=== PATIENT | female | born 1940 | race Caucasian/White ===

== ENCOUNTER 2023-10-08 13:19 | Inpatient (IN) | payer OTHER, SELFPAY ==
[2023-10-08] VITALS (10 sets, daily range): BP systolic 132–175; BP diastolic 63–89; PULSE 72; O2SAT 98; BMI 24.7; BMI 22.6
[2023-10-08] MEDS: VALIUM INJECTION 5 MG IV (09:16)
--- NOTE | 2023-10-08 09:23 | ED.GENMED ---
History of Present Illness
<Hardy Cervantes Jr., PA-C - Last Filed: 10/08/23 11:49>
General
Chief Complaint: Back Pain
Source: patient
Exam Limitations: none
Time Seen by Provider: 10/08/23 08:57
Nursing documentation reviewed up to this point in time: agreed with
Travel History
Have you had any contact with someone who has COVID-19?: No
Do you have any symptoms of coronavirus? Fever > 100 degrees, chills, cough, shortness of breath, sore throat, loss of taste or smell, muscle aches, or headache?: No
History of Present Illness
History of Present Illness:
83-year-old female past medical history of CVA hypertension hyperlipidemia, chronic back issues anxiety and depression presenting to the emergency department today with concerns of severe back pain worsening over the past week. Previously has seen
Dr. Rizo but has not followed up very recently. Currently on prednisone for comfort. Also has been taking Tylenol without relief. Because of the pain is very severe this morning. Has been gradually worsening over the past week. Also is concerned
that sometimes she will be peeing herself over the past few days and also an episode where she was putting her self overnight multiple times a few days ago. She has any specific chest pain shortness of breath upper respiratory symptoms fevers
nausea vomiting numbness or weakness into the extremities.
Past History
<Hardy Cervantes Jr., PA-C - Last Filed: 10/08/23 11:49>
Past History
ED Past Medical History: HTN, Hypothyroidism and Other (TIA)
ED Past Surgical History: Gynecological and Tonsilectomy
Patient has exhibited threatening behavior?: No
PSI?: No
Social History
Tobacco: Non-smoker
Alcohol: Occasional
Personal:
Living: with family
Employment: Retired
Family History
Family History: Other (Noncontributory)
Review of Systems
<Hardy Cervantes Jr., PA-C - Last Filed: 10/08/23 11:49>
Review of Systems
Allergies reviewed?: Yes
All Other Systems: ROS reviewed and negative except as documented in HPI and ROS
Phy Exam
<Hardy Cervantes Jr., PA-C - Last Filed: 10/08/23 11:49>
Physical Exam
Physical Exam:
GENERAL: Alert , patient appears uncomfortable
EYE: pupils equal and reactive
NECK: Supple, no significant adenopathy.
ENT: o/p clr, mmm.
CARDIAC: Regular rate and rhythm .
LUNGS: Clear breath sounds bilaterally, no acute respiratory distress, no wheezes/rales/rhonchi
ABDOMEN: Soft, without focal tenderness, no r/g, no cvat
NEUROLOGICAL: Alert and oriented, no focal neuro deficits
SKIN: Warm and dry, skin intact.
MUSCULOSKELETAL: No edema, well perfused.
PSYCH: Normal and appropriate interaction.
Course
<Hardy Cervantes Jr., PA-C - Last Filed: 10/08/23 11:49>
Orders/Labs/Results
Orders:
Orders
10/08/23 09:09
Bladder Scan- Treatment ONCE
diazePAM [Valium Injection] 10 mg .ROUTE .STK-MED ONE
diazePAM [Valium Injection] 5 mg IV NOW STA
10/08/23 09:15
Dexamethasone Sod Phosphate [Decadron] 10 mg IV NOW STA
10/08/23 09:20
BMP [Basic Metabolic Panel] Urgent
CBC/With Diff [Complete Blood Count/With Diff] Urgent
10/08/23 09:35
CT Lumbar Spine W/o Iv Contras Urgent
Comment:
Reason For Exam: low back pain
10/08/23 10:40
Urinalysis Reflex To Culture Urgent
Date Specimen was Collected: 10/08/23
Time Specimen was Collected: 10:39
Urine Microscopic Reflex Cult Urgent
Urine Culture Urgent
CLAUDIA Source: U
Specimen Description:
Date Specimen was Collected: 10/08/23
Time Specimen was Collected: 10:39
10/08/23 11:24
HYDROmorphone [Dilaudid] 0.5 mg IV NOW STA
Abnormal Lab Results
10/08/23 10/08/23
09:20 10:40
WBC 23.2 H 10^3/uL
(4.8-10.8)
Abs Immat Gran (auto) 0.2 H 10^3/uL
(0-0.05)
Absolute Neuts (auto) 19.6 H 10^3/uL
(1.4-6.5)
Absolute Monos (auto) 1.8 H 10^3/uL
(0.1-0.6)
Immature Gran % 1.0 H %
(0-0.5)
Neutrophils % 84.3 H %
(42.2-75.2)
Lymphocytes % 6.7 L %
(20.5-51.1)
Sodium 129 L mmol/L
(135-145)
Chloride 91 L mmol/L
(98-107)
BUN 19 H mg/dl
(7-17)
Glucose 134 H mg/dl
(70-99)
Ur Occult Blood Reflex Trace A
(Negative)
Leukocyte Esterase Rfl 1+ A
(Negative)
10/08/23 09:20
10/08/23 09:20
Vital Signs
Initial and Last Documented VS:
Initial Vital Signs
Temp Pulse Resp BP Pulse Ox
98.0 F 97 16 171/89 98
10/08/23 08:42 10/08/23 08:42 10/08/23 08:42 10/08/23 08:42 10/08/23 08:42
Last Documented Vital Signs
Temp Pulse Resp BP Pulse Ox
98.0 F 97 16 175/66 95
10/08/23 08:42 10/08/23 08:42 10/08/23 08:42 10/08/23 11:38 10/08/23 11:38
<Roverto Jernigan MD - Last Filed: 10/08/23 09:53>
Orders/Labs/Results
Orders:
Orders
10/08/23 09:09
Bladder Scan- Treatment ONCE
diazePAM [Valium Injection] 10 mg .ROUTE .STK-MED ONE
diazePAM [Valium Injection] 5 mg IV NOW STA
10/08/23 09:15
Dexamethasone Sod Phosphate [Decadron] 10 mg IV NOW STA
10/08/23 09:20
BMP [Basic Metabolic Panel] Urgent
CBC/With Diff [Complete Blood Count/With Diff] Urgent
10/08/23 09:35
CT Lumbar Spine W/o Iv Contras Urgent
Comment:
Reason For Exam: low back pain
10/08/23 10:40
Urinalysis Reflex To Culture Urgent
Date Specimen was Collected: 10/08/23
Time Specimen was Collected: 10:39
Urine Microscopic Reflex Cult Urgent
Urine Culture Urgent
CLAUDIA Source: U
Specimen Description:
Date Specimen was Collected: 10/08/23
Time Specimen was Collected: 10:39
10/08/23 11:24
HYDROmorphone [Dilaudid] 0.5 mg IV NOW STA
Abnormal Lab Results
10/08/23 10/08/23
09:20 10:40
WBC 23.2 H 10^3/uL
(4.8-10.8)
Abs Immat Gran (auto) 0.2 H 10^3/uL
(0-0.05)
Absolute Neuts (auto) 19.6 H 10^3/uL
(1.4-6.5)
Absolute Monos (auto) 1.8 H 10^3/uL
(0.1-0.6)
Immature Gran % 1.0 H %
(0-0.5)
Neutrophils % 84.3 H %
(42.2-75.2)
Lymphocytes % 6.7 L %
(20.5-51.1)
Sodium 129 L mmol/L
(135-145)
Chloride 91 L mmol/L
(98-107)
BUN 19 H mg/dl
(7-17)
Glucose 134 H mg/dl
(70-99)
Ur Occult Blood Reflex Trace A
(Negative)
Leukocyte Esterase Rfl 1+ A
(Negative)
10/08/23 09:20
10/08/23 09:20
Vital Signs
Initial and Last Documented VS:
Initial Vital Signs
Temp Pulse Resp BP Pulse Ox
98.0 F 97 16 171/89 98
10/08/23 08:42 10/08/23 08:42 10/08/23 08:42 10/08/23 08:42 10/08/23 08:42
Last Documented Vital Signs
Temp Pulse Resp BP Pulse Ox
98.0 F 97 16 175/66 95
10/08/23 08:42 10/08/23 08:42 10/08/23 08:42 10/08/23 11:38 10/08/23 11:38
<Hardy Cervantes Jr., PA-C - Last Filed: 10/08/23 11:49>
MDM/Problems Addressed
MDM/Problems Addressed:
83-year-old female presenting to the emergency department today with concerns of worsening back pain over the past week. Has been taking gabapentin steroids and Tylenol without relief. Does have chronic back pain. Does have a history of herniated
disc and spinal stenosis in the past. Patient is additionally concerned of incontinence of bowel and bladder past few days. Denies having the symptoms in the past. Upon arrival patient is visibly uncomfortable but vital signs are normal other
than elevated blood pressure. Patient given initial dose of Valium she claims the symptoms significantly improved but still unable to move without worsening pain. Case was then discussed with patient's orthopedic surgeon Dr. Rizo who came to see
her at bedside. He feels that there is no immediate surgical intervention that would be helpful at this point recommending further pain control. Patient was additionally given a dose of Dilaudid still with ongoing pain plan to be admitted for
further pain management and discharge planning.
<Hardy Cervantes Jr., PA-C - Last Filed: 10/08/23 11:49>
*Critical Care Note
Total Time (30-74mins, 75-104mins- exclusive of procedures): Not Applicable
ED Attending Note
<Hardy Cervantes Jr., PA-C - Last Filed: 10/08/23 11:49>
-
Portions of this chart may have been created with voice recognition software.� Occasional wrong word or��sound alike� substitutions may have occurred due to the inherent limitations of voice recognition software.
<Roverto Jernigan MD - Last Filed: 10/08/23 09:53>
ED Attending Note
Patient seen and examined by attending physician: Yes
I performed the substantive portion of visit, reviewed & personally made and approve the management plan that is documented in note by myself or MARTHA.: Yes
ED Attending Note:
83-year-old female progressive intractable back pain. Some slight bladder incontinence recently although no trouble urinating. This is more back pain versus leg pain which has been previous issues. Had a procedure done 2 weeks ago for pain
management. Went to physical therapy 1 week ago. Pain seemed to progress then. Talk to her spine surgeon multiple times this past week who recommended ER evaluation.
On exam patient is nontoxic in no distress at rest. Good lower extremity strength. Plantar dorsiflexion of the feet normal. Sensation intact. Negative pain with straight leg raising. Severe pain with any motion twisting or turning. Lungs are
clear and equal.
Progressive intractable back pain. Has known spinal stenosis based on MRIs. Discussed with patient's spine surgeon. Start with CT scan.
Discharge Plan
Departure
Patient Disposition: Admit
Date of Disposition: 10/08/23
Time of Disposition: 11:48
Admit to: Med/Surg
Admit to doctor: Negin
Presentation/result/management discussed w/ accepting MD/DO: Hospitalist
Patient with high blood pressure during this ER visit?: No
Condition: Good
Covid-19: Not Applicable
Discharge Problem:
Back pain, Compression fracture
Prescriptions:
No Action
levothyroxine 88 MCG tablet
88 mcg PO DAILY AT 0700
omeprazole 20 MG capsule,delayed release(DR/EC)
20 mg PO DAILYPRN PRN (Reason: heartburn)
atorvastatin 10 MG tablet
10 mg PO DAILY Qty: 0
aspirin 325 MG tablet,delayed release (DR/EC)
325 mg PO DAILY 0RF
metoprolol tartrate 50 MG tablet
50 mg PO BID Qty: 60 0RF
Rx Instructions:
HOLD SYSTOLIC BLOODPRESSURE <120, HEART RATE <55
lisinopril 30 MG tablet
30 mg PO DAILY Qty: 0 0RF
Rx Instructions:
HOLD SYSTOLIC BLOOD PRESSURE <130
acetaminophen 325 MG tablet
650 mg PO Q6HPRN PRN (Reason: pain, with tramadol)
cyclobenzaprine 10 MG tablet
5 mg PO Q8H 0RF
sennosides [senna] 1 TABLET tablet
2 tab PO BID 0RF
polyethylene glycol 3350 17 GRAMS powder in packet
17 grams PO DAILY 0RF
lidocaine 1 PATCH adhesive patch,medicated
1 patch topical DAILY 0RF
docusate sodium 100 MG capsule
100 mg PO BID 0RF
hydrocortisone 1 APPLIC cream
1 applic topical BID PRN (Reason: itching) 0RF
simethicone [Gas Relief 80 (simethicone)] 80 MG tablet,chewable
80 mg PO QIDPRN PRN (Reason: gas) 0RF
tramadol 50 MG tablet
50 mg PO Q6H PRN (Reason: severe pain) Qty: 15 0RF
Rx Instructions:
take 1 or 1.5 tabs every 6 hours as needed for severe pain
amoxicillin-pot clavulanate 1 TABLET tablet
1 tab PO BID Qty: 20 0RF
gabapentin 300 mg capsule
300 mg PO BID Qty: 20 0RF
hydromorphone [Dilaudid] 2 mg tablet
2 mg PO Q4H PRN (Reason: pain) Qty: 20 0RF
lorazepam [Ativan] 0.5 mg tablet
0.5 mg PO TID PRN (Reason: muscle spasm) Qty: 20 0RF
Referrals:
Tim Ford MD [Family Provider] -
Interventions
Interventions:
*Risk Screen - Suicide Last Done: 10/08/23 08:56
*General Assessment Last Done: 10/08/23 08:56
ED- Fall Risk Assessment Last Done: 10/08/23 08:56
*ED COVID-19 Vaccine History Last Done: 10/08/23 08:42
[2023-10-08] MEDS: DECADRON 10 MG IV (09:25)
[2023-10-08 09:32] LABS: % Basophils 0.2 % (0-2); % Eosinophils 0.1 % (0-6); % Lymphocytes 6.7 % (20.5-51.1); % Monocytes 7.7 % (1.7-9.3); % Neutrophils 84.3 % (42.2-75.2); Absolute Immature Granulocytes 0.2 10^3/uL (0-0.05); Absolute Lymphocytes 1.6 10^3/uL (1.2-3.4); Absolute Monocytes 1.8 10^3/uL (0.1-0.6); Absolute Neutrophils 19.6 10^3/uL (1.4-6.5); Hematocrit 43.8 % (37.0-47.0); Hemoglobin 15.6 g/dL (12.0-16.0); Mean Corp Hgb Conc. 35.6 g/dL (33.0-37.0); Mean Corpuscular Hgb 30.8 pg (27.0-31.0); Mean Corpuscular Volume 86.6 fL (81.0-99.0); Mean Platelet Volume 8.2 fL (7.4-10.4); Nucleated Red Blood Cells % 0 %; Platelet Count 385 10^3/uL (130-400); Red Blood Cell Count 5.06 10^6/uL (4.20-5.40); Red Cell Dist. Width 12.8 % (11.5-14.5); White Blood Cell Count 23.2 10^3/uL (4.8-10.8)
[2023-10-08 09:45] LABS: Blood Urea Nitrogen 19 mg/dl (7-17); Calcium 9.4 mg/dl (8.4-10.2); Carbon Dioxide 29 mmol/L (22-30); Chloride 91 mmol/L (98-107); Estimated Creatinine Clearance 47 ml/min; Glucose 134 mg/dl (70-99); Potassium 4.4 mmol/L (3.5-5.1); Sodium 129 mmol/L (135-145); eGFR > 60.00
[2023-10-08 11:03] LABS: Urine Albumin Negative (Neg - Trace); Urine Bilirubin Negative (Negative); Urine Character Clear (Clear); Urine Color Yellow; Urine Glucose Negative (Negative); Urine Ketone Negative (Negative); Urine Leukocyte 1+ (Negative); Urine Nitrite Negative (Negative); Urine Occult Blood Trace (Negative); Urine Urobilinogen Negative (Neg - 1+)
--- NOTE | 2023-10-08 11:07 | W.PN.UPDATE ---
Update Note
Progress Note Update
L sp fx as described
to get brace
PT and pain controlled
May need MRI t and L spine
[2023-10-08 11:14] LABS: Urine Red Blood Cell 0-2 /HPF (0-2)
[2023-10-08] MEDS: DILAUDID 0.5 MG IV (11:37)
--- NOTE | 2023-10-08 12:40 | HPS.HSE ---
Addendum entered and electronically signed by Chico White MD 10/08/23 13:55:
83-year-old female with a past medical history of hypertension, hyponatremia, hypothyroidism, and chronic back pain from multilevel compression fractures status post ИВАН and MILD (minimally invasive lumbar decompression) procedure on 09/26/[address] Dale presents with intractable back pain, and acute on chronic ambulatory dysfunction. Patient states that her pain got worse after undergoing PT on 10/01/2023. She has severe intractable pain, and is unable to ambulate.
Discussed with Dr. Rizo, who recommends pain control and PT. He recommends holding off on MRI studies for now, to see how she does with pain management.
Will treat her pain with IV dexamethasone, lidocaine patches, Tylenol 1 g 3 times daily, oxycodone as needed.
Patient complains of constipation, will start aggressive bowel regimen.
Patient has acute on chronic hyponatremia, sodium is 129 today. It has ranged from 128�130 in the last 4 years.
Suspect this is due to excess ADH release from pain.
Will check TSH, free T4, urine studies, serum osmolality, fluid restrict. Monitor sodium.
Patient has multidrug-resistant hypertension. Will continue her home medications.
Check all blood pressures manually, as pain and steroids will elevate her blood pressure.
I have personally seen and examined the patient, and agree with the plan of care as documented by MARIAM Larkin
Advance care planning discussed, patient is a DNR.
All other issues as outlined by the advanced care practitioner.
Total time spent to see the patient on the floor, examine the patient, review data and lab results, discuss treatment plan with patient, nursing staff around 75 minutes.
Original Note:
Family Physician
-
Family Physician: Tim Ford
Chief Complaint
-
Back pain, spasms, inability to walk due to pain
History of Present Illness
83-year-old female from home with her who states 3 weeks ago she had a lumbar epidural injection for chronic back pain with herniated disks and compression fractures. 2 weeks ago she had a procedure by Dr. Dale called MILD wear portion of
bone or part of thickened ligament is removed to restore space in the spinal canal. She reports increased back pain since having this procedure and inability to get herself out of bed. She develops pain in her lower lumbar back along with back
spasms with standing. She denies urinary incontinence or bowel incontinence, fever, chills, abdominal pain, nausea, vomit, diarrhea, chest pain, palpitations, shortness breath, cough. She has past medical history of hypertension multidrug regimen,
hypothyroidism, chronic hyponatremia, GERD, OA, HLD, constipation, glaucoma, compression fractures T11, T12, L1.
Medical History
Past Medical History
Past Medical History: Reports Other
Additional Past Medical History:
hypertension multidrug regimen
hypothyroidism
chronic hyponatremia
GERD
OA
HLD
constipation
glaucoma
compression fractures T11, T12, L1
Past Surgical History: Reports Other
Additional Past Surgical History:
Epidural injection 3 weeks ago
-procedure by Dr. Dale called MILD wear portion of bone or part of thickened ligament is removed to restore space in the spinal canal
Tonsillectomy
Tubal ligation
Social History
Tobacco: Non-smoker
Alcohol: Daily (1 shot of jes with water nightly)
Personal:
Living: With Family
Employment: Retired
Family History
Family History: Not pertinent
Allergies / Home Medications
Allergies reflects when Allergies were last updated in [facility].
Home Medications with original date entered in [facility]missary
Allergy/Medication List:
Allergies
Allergy/AdvReac Type Severity Reaction Status Date / Time
nifedipine Allergy Unknown Unknown Verified 12/19/22 12:58
spironolactone Allergy Unknown Unknown Verified 12/19/22 12:58
ciprofloxacin Allergy Unknown Verified 12/19/22 12:58
hydrochlorothiazide Allergy Unknown Verified 12/19/22 12:58
ibuprofen Allergy Unknown Verified 12/19/22 12:58
metronidazole Allergy Unknown Verified 12/19/22 12:58
Sulfa (Sulfonamide Allergy Unknown Verified 12/19/22 12:58
Antibiotics)
Home Medications
levothyroxine 88 mcg tablet 88 mcg PO DAILY AT 0700 03/23/18
omeprazole 20 mg capsule,delayed release 20 mg PO DAILYPRN PRN heartburn 03/23/18
atorvastatin 10 mg tablet 10 mg PO DAILY ##0 12/24/18
aspirin 325 mg tablet,delayed release 325 mg PO DAILY 01/16/19
lisinopril 30 mg tablet 30 mg PO DAILY ##0 01/16/19
metoprolol tartrate 50 mg tablet 50 mg PO BID ##60 01/16/19
acetaminophen 325 mg tablet 650 mg PO Q6HPRN PRN pain, with tramadol 01/28/19
cyclobenzaprine 10 mg tablet 5 mg PO Q8H 01/31/19
docusate sodium 100 mg capsule 100 mg PO BID 01/31/19
hydrocortisone 2.5 % topical cream 1 applic topical BID PRN itching 01/31/19
lidocaine 5 % topical patch 1 patch topical DAILY 01/31/19
polyethylene glycol 3350 17 gram oral powder packet 17 grams PO DAILY 01/31/19
sennosides 8.6 mg tablet (senna) 2 tab PO BID 01/31/19
simethicone 80 mg chewable tablet (Gas Relief 80 (simethicone)) 80 mg PO QIDPRN PRN gas 01/31/19
tramadol 50 mg tablet 50 mg PO Q6H PRN severe pain #15 tabs 01/31/19
amoxicillin 875 mg-potassium clavulanate 125 mg tablet 1 tab PO BID #20 tabs 07/16/21
gabapentin 300 mg capsule 300 mg PO BID #20 caps 04/24/22
hydromorphone 2 mg tablet (Dilaudid) 2 mg PO Q4H PRN pain #20 tabs 04/24/22
lorazepam 0.5 mg tablet (Ativan) 0.5 mg PO TID PRN muscle spasm #20 tabs 04/24/22
Review of Systems
-
History Source: Patient and Family ( at bedside)
A 12 point ROS was completed and negative except as noted: Yes
Constitutional: Denies Fever, Fatigue or Chills
EENT: Denies Tearing or Mouth Swelling
Respiratory: Denies Cough or Trouble Breathing
Cardiac: Denies Chest Pain, Diaphoresis, Palpitations or Syncope
Abdomen/GI: Denies Abdominal Pain, Nausea, Vomiting, Diarrhea, Constipated, Bloody Stools or Black Stools
: Denies Dysuria, Frequency, Flank Pain, Incontinence, Difficulty Voiding or Urgency
Musculoskeletal: Reports Other (Lower lumbar back pain with spasms); Denies Joint Pain
Skin: Denies Itching or Rash
Neurological: Denies Dizzy, Headache, Weakness or Numbness
Endocrine: Reports No Symptoms
Hematologic/Lymphatic: Reports No Symptoms
Psych: Reports Calm
Physical Exam
Vital Signs
Vital Signs
Temp Pulse Resp BP Pulse Ox
98.0 F 97 16 175/66 95
10/08/23 08:42 10/08/23 08:42 10/08/23 08:42 10/08/23 11:38 10/08/23 11:38
Physical Exam
General: Comfortable and Conversant; No Pain, Fever or Chills
HEENT: NormoCephalic, Anicteric, Moist mucous membranes, PERRLA, Thomson Conjunctivae and No Ptosis
Respiratory: Clear; No Wheezes, Rales or Rhonchi
Cardiac: S1/S2 and Regular Rhythm; No Murmur, Rub, Gallop or Peripheral Edema
Breast: Deferred by me
GI: Soft, Non Tender, Non Distended, Normal Bowel Sounds and No Hepatosplenomegaly
Rectal: Deferred by Provider
Genito-urinary: Deferred by me
Musculoskeletal: No Clubbing, No Cyanosis, No Edema and Other (Tenderness lower lumbar back with spasm, sensation intact distal legs range of motion intact distal legs patient reports severe pain and back with standing)
Skin: Warm and Dry; No Rash
Neuro: AO x 3, Nonfocal/grossly intact and No Sensory Deficits; No Slurred Speech, Facial Droop, Tremors or Sedated
Psych: Calm
Laboratory Results
-
10/08/23 09:20
10/08/23 09:20
Impression/Plan
-
Impression/plan:
Admit to MedSurg
#Intractable back pain/spasms secondary to chronic compression fractures/spinal cord impingement
Epidural injection 3 weeks ago
-procedure by Dr. Dale called MILD wear portion of bone or part of thickened ligament is removed to restore space in the spinal canal.
-Tylenol 1 gm porfirio, Versed 5 mg moderate pain, 10 mg severe pain
-Valium as needed back spasm
-Bowel regimen
-PT/OT/case management consult
-Continue gabapentin 100 mg 3 times daily,
Prior prednisone patient is on taper started with 40 mg x 430 mg x 3, 20 x 2 ,10 x 1-currently on 2 days left [address] spine:
1. Stable 90% compression fracture T12 with 7 mm retropulsion of the superior endplate of T12 in the anterior aspect of the central
portion of the left side of the spinal canal associated with moderate cord impingement
2. 20% compression fracture of the superior endplate of L1 with 4 mm retropulsion of the superior endplate of L1 into anterior aspect spinal
canal with mild to moderate impingement
3. 25% compression fractures. Endplate L2 previously treated with vertebroplasty 4 mm retropulsion of the superior endplate of L2 into
the spinal canal with moderate impingement
4. Moderate right and severe left degenerative facet joint disease L4-L5 with 6 mm grade 1 spondylolisthesis on L4, moderate bilateral L4
foraminal stenosis
5. Mild loss of disc stature and mild concentric bulging of L3-L4 intervertebral disc with impingement of the thecal sac L4 nerve roots
#Acute on chronic hyponatremia
NA 129
Check TSH with free T4, urine NA, urine Osmo, serum Osmo
- fluid restrict 48 oz
#Mild hyperglycemia
BS 134 check HgbA1c
#Hypothyroidism
-Check TSH with free T4 reflex
- continue levothyroxine 100 mcg
#HTN�benign Multidrug regimen
- nursing to take manual BP
-Continue lisinopril 40 mg daily, metoprolol 100 mg 3 times daily, amlodipine 5 mg daily
#HLD
Continue Lipitor 20 mg daily
#OA
Takes Fosamax 70 weekly on Sundays skipped 10/07/2023
#Hx glaucoma
Dvt proph
-Subcu Lovenox
DNR per patient with Angela at bedside
[2023-10-08 14:39] LABS: Urine Sodium 70 mmol/L (30-90)
[2023-10-08 14:55] LABS: Osmolality Urine 254 mOsm/kg (300-900)
[2023-10-08] MEDS: LIDOCAINE 4% PATCH 1 PATCH TOPICAL (15:24)
[2023-10-08] MEDS: MIRALAX 17 GRAMS PO ×2 (15:24→20:08)
[2023-10-08] MEDS: TYLENOL 1000 MG PO ×2 (15:25→23:33)
[2023-10-08] MEDS: SENOKOT-S 2 TABLET PO ×2 (15:25→20:10)
[2023-10-08] MEDS: FLEXERIL 10 MG PO ×2 (15:25→23:33)
[2023-10-08] MEDS: LOPRESSOR 100 MG PO ×2 (15:25→23:33)
[2023-10-08] MEDS: NEURONTIN 200 MG PO ×2 (15:26→23:33)
[2023-10-08 15:45] LABS: Osmolality Serum 278 mOsm/kg (275-300)
[2023-10-08] MEDS: LOVENOX 40 MG SC (17:35)
[2023-10-08] MEDS: DECADRON 4 MG IV (20:09)
[2023-10-08] MEDS: TIMOPTIC 0.5% OPHTHALMIC SOLUTION RIGHT EYE ×2 (20:10→20:13)
[2023-10-08] MEDS: TUMS 2 TABLET PO (23:42)
[2023-10-09] MEDS: SYNTHROID 100 MCG PO (05:42)
--- NOTE | 2023-10-09 08:16 | W.PN.HOSP.TC ---
Today's Communication/Plan
-
See bold
Assessment / Plan
Assessment / Plan
HPI: 83-year-old female with a past medical history of hypertension, hyponatremia, hypothyroidism, and chronic back pain from multilevel compression fractures status post ИВАН and MILD (minimally invasive lumbar decompression) procedure on 09/26/[address] Dale presents with intractable back pain, and acute on chronic ambulatory dysfunction.� Patient states that her pain got worse after undergoing PT on 10/01/2023.� She has severe intractable pain, and is unable to ambulate.
#Intractable back pain/spasms secondary to chronic compression fractures/spinal cord impingement
S/p Epidural injection 3 weeks ago
S/p MILD procedure 09/26/23
Pain worsened w/ PT on 10/01/23
Patient reports severe intractable pain with any type of movement or standing
Appreciate spine surgery, Dr. Rizo, recommended spine MRI today
Increased gabapentin to 200 mg 3 times a day
Continue IV dexamethasone, Flexeril, Tylenol 1 g scheduled
#Acute on chronic hyponatremia
Suspect secondary to excess ADH release from pain
Sodium 126 today, was 129 upon admission
Continue fluid restriction, consult nephrology for possible Samsca
#Hypothyroidism
Continue levothyroxine
Benign essential hypertension
Continue lisinopril 40 mg daily, metoprolol 100 mg 3 times daily, amlodipine 5 mg daily
#HLD
Continue Lipitor 20 mg daily
#OA
Takes Fosamax 70 weekly on Sundays skipped 10/07/2023
#Hx glaucoma
DVT prophylaxis�subcu Lovenox
DNR as confirmed upon admission
Physical Exam
General: Appears to not feel well, no acute distress
HEENT: Normocephalic, Atraumatic, EOMI, MMM
Respiratory: Clear to Auscultation bilaterally
Cardiac: Normal S1/S2, Regular Rate and Rhythm
GI: Soft, Nontender, Nondistended, Normal Bowel Sounds
Extremities: No Clubbing, Cyanosis, or Edema
Musculoskeletal: Wearing brace
Anticipated Discharge: 24 - 48 hours
Subjective/Interval History
-
Date of Service: October 09, 2023
Patient complains of severe back pain with any type of movement.
Objective Data
-
Labs:
Laboratory Results
10/09/23
06:31
Sodium Pending
Potassium Pending
Chloride Pending
Carbon Dioxide Pending
BUN Pending
Creatinine Pending
Glucose Pending
Calcium Pending
Total Bilirubin Pending
AST Pending
ALT Pending
Alkaline Phosphatase Pending
Vital Signs:
Vital Signs
Temp Pulse Resp BP Pulse Ox
97.7 F 68 20 132/70 92
10/09/23 07:47 10/09/23 07:47 10/09/23 07:47 10/08/23 23:00 10/09/23 07:47
I&O
10/08/23 10/09/23 10/10/23
06:59 06:59 06:59
Intake Total 720 / 720
Output Total 0 / 0
Balance 720 / 720
[2023-10-09] MEDS: LIDOCAINE 4% PATCH 1 PATCH TOPICAL (08:46)
[2023-10-09] MEDS: MIRALAX 17 GRAMS PO (08:46)
[2023-10-09] MEDS: TYLENOL 1000 MG PO ×2 (08:46→16:47)
[2023-10-09] MEDS: DECADRON 4 MG IV ×2 (08:47→20:24)
[2023-10-09] MEDS: ASPIR LOW (ENTERIC COATED) 81 MG PO (08:47)
[2023-10-09] MEDS: FLEXERIL 10 MG PO ×3 (08:47→23:42)
[2023-10-09] MEDS: NEURONTIN 200 MG PO ×2 (08:47→16:48)
[2023-10-09] MEDS: SENOKOT-S 2 TABLET PO (08:47)
[2023-10-09] MEDS: TIMOPTIC 0.5% OPHTHALMIC SOLUTION 1 DROP RIGHT EYE (08:48)
[2023-10-09] MEDS: LIPITOR 20 MG PO (08:49)
[2023-10-09 09:01] LABS: ALT (SGPT) 16 U/L (0-35); AST (SGOT) 24 U/L (14-36); Albumin 2.9 g/dl (3.5-5.0); Alkaline Phosphatase 59 U/L (38-126); Blood Urea Nitrogen 28 mg/dl (7-17); Calcium 8.4 mg/dl (8.4-10.2); Carbon Dioxide 27 mmol/L (22-30); Chloride 95 mmol/L (98-107); Direct Bilirubin 0.4 mg/dl (0.0-0.4); Estimated Creatinine Clearance 49 ml/min; Glucose 113 mg/dl (70-99); Potassium 4.5 mmol/L (3.5-5.1); Sodium 126 mmol/L (135-145); Total Protein 5.4 g/dl (6.3-8.2); eGFR > 60.00
[2023-10-09 09:27] LABS: TSH Reflex To Free T4 0.46 uIU/ml (0.47-4.68)
[2023-10-09] MEDS: LOPRESSOR 100 MG PO ×2 (09:45→16:48)
[2023-10-09] MEDS: ZESTRIL 40 MG PO (09:46)
[2023-10-09 09:47] VITALS: BP 126/72; BP 131/74
[2023-10-09 09:57] LABS: Free T4 1.33 ng/dl (0.78-2.19)
--- NOTE | 2023-10-09 10:30 | W.PN.UPDATE ---
Update Note
Progress Note Update
Cont with severe LBP
Back to bed this am because of pain
cont with bladder issues
Will order MRI
[2023-10-09 11:20] VITALS: BP 120/74; PULSE 79; O2SAT 94
[2023-10-09 12:13] LABS: Glycohemoglobin (HgbA1c) 6.1 % (4.0-5.6)
[2023-10-09] MEDS: PERCOCET 5/325 1 TABLET PO (13:43)
[2023-10-09] MEDS: NORVASC 5 MG PO (13:43)
[2023-10-09 13:45] VITALS: BP 136/68
[2023-10-09 15:06] VITALS: BP 123/63
--- NOTE | 2023-10-09 15:23 | W.CON.NEPH ---
Consultation
-
Date/Time Consultation Requested: October 09, 2023 1400
Date/Time Consultation Performed: October 09, 2023 1530
Requesting Provider: Dr. Ch[place] White
Performing Provider: Dr. Khan
Reason for Consultation: Hyponatremia
Medical History
-
Chief Complaint: hyponatremia
History of Present Illness:
83-year-old female with a past medical history of hypertension, hyponatremia, hypothyroidism, and chronic back pain from multilevel compression fractures status post ИВАН and MILD (minimally invasive lumbar decompression) procedure on 09/26/[address] Dale presents with intractable back pain, and acute on chronic ambulatory dysfunction.� Patient states that her pain got worse after undergoing PT on 10/01/2023.� She has severe intractable pain, and is unable to ambulate.
Past Medical History
Chronic hyponatremia, hypertension, hypothyroidism, GERD, arthritis, hyperlipidemia, glaucoma, compression fractures, epidural injections, tonsillectomy, tubal ligation, diverticulitis, stroke
Social History
Tobacco: Non-Smoker
Alcohol: Daily
Family History
no CKD
Allergies / Home Medications
Allergy/AdvReac Type Severity Reaction Status Date / Time
nifedipine Allergy Unknown Unknown Verified 12/19/22 12:58
spironolactone Allergy Unknown Unknown Verified 12/19/22 12:58
ciprofloxacin Allergy Unknown Verified 12/19/22 12:58
hydrochlorothiazide Allergy Unknown Verified 12/19/22 12:58
ibuprofen Allergy Unknown Verified 12/19/22 12:58
metronidazole Allergy Unknown Verified 12/19/22 12:58
Sulfa (Sulfonamide Allergy Unknown Verified 12/19/22 12:58
Antibiotics)
Medication Instructions Recorded Confirmed Type
acetaminophen 325 mg tablet 650 mg PO Q6HPRN PRN mild pain 01/28/19 10/08/23 History
Salonpas 1 applic topical DAILYPRN PRN 10/08/23 10/08/23 History
apply to waist
alendronate 70 mg tablet 70 mg PO SAWANT@0800 osteoporosis 10/08/23 10/08/23 History
amlodipine 5 mg tablet 5 mg PO NOON Blood Pressure 10/08/23 10/08/23 History
aspirin 81 mg tablet,delayed 81 mg PO DAILY Blood Clot 10/08/23 10/08/23 History
release Prevention/Tx
atorvastatin 20 mg tablet 20 mg PO DAILY High Cholesterol 10/08/23 10/08/23 History
bismuth subsalicylate 262 mg 524 mg PO ONCE PRN diarrhea 10/08/23 10/08/23 History
tablet (Pepto-Bismol)
camphor-methyl salicylate-menthol 1 patch topical DAILYPRN PRN apply 10/08/23 10/08/23 History
topical patch to back
gabapentin 100 mg capsule 200 mg PO TID pain 10/08/23 10/08/23 History
levothyroxine 100 mcg tablet 100 mcg PO DAILY hypothyroidism 10/08/23 10/08/23 History
lisinopril 40 mg tablet 40 mg PO DAILY Blood Pressure 10/08/23 10/08/23 History
metoprolol tartrate 100 mg tablet 100 mg PO TID Blood Pressure 10/08/23 10/08/23 History
okwupwmimwii-nomrfyrm-awyhme tablet 1 tab PO .LUNCHTIME Supplement 10/08/23 10/08/23 History
prednisone 10 mg tablet 10 mg PO .TAPER Anti-Inflammatory 10/08/23 10/08/23 History
sennosides 8.6 mg tablet (Senokot) 17.2 mg PO DAILYPRN PRN 10/08/23 10/08/23 History
constipation
timolol maleate 0.5 % eye gel 1 drp RIGHT EYE DAILY Eye Condition 10/08/23 10/08/23 History
forming solution
Review of Systems
-
Chronic back pain. No fevers, chills, sweats. No shortness of breath. No chest pain. No issues with urine output. The remainder of the complete review of systems was negative
Physical Exam
Vital Signs
Vital Signs
Temp Pulse Resp BP Pulse Ox
97.7 F 68 20 136/68 92
10/09/23 07:47 10/09/23 07:47 10/09/23 07:47 10/09/23 13:45 10/09/23 07:47
Lab Results
WBC 23.2 10^3/uL (4.8-10.8) H 10/08/23 09:20
RBC 5.06 10^6/uL (4.20-5.40) 10/08/23 09:20
Hgb 15.6 g/dL (12.0-16.0) 10/08/23 09:20
Hct 43.8 % (37.0-47.0) 10/08/23 09:20
Plt Count 385 10^3/uL (130-400) 10/08/23 09:20
Sodium 126 mmol/L (135-145) L 10/09/23 06:31
Potassium 4.5 mmol/L (3.5-5.1) 10/09/23 06:31
Chloride 95 mmol/L (98-107) L 10/09/23 06:31
Carbon Dioxide 27 mmol/L (22-30) 10/09/23 06:31
BUN 28 mg/dl (7-17) H 10/09/23 06:31
Creatinine 0.7 mg/dL (0.6-1.0) 10/09/23 06:31
eGFR > 60.00 10/09/23 06:31
Glucose 113 mg/dl (70-99) H 10/09/23 06:31
Calcium 8.4 mg/dl (8.4-10.2) 10/09/23 06:31
Albumin 2.9 g/dl (3.5-5.0) L 10/09/23 06:31
Physical Exam
General: AOx3
HEENT: PERRL, EOMI, Ear/Nose Intact, Hearing Normal, Oropharynx Clear/Moist, Trachea Midline and No JVD
Respiratory: Clear
Cardiac: Regular Rate/Rhythm and No Edema
Abdomen: Soft, Nontender, Nondistended, Normal Bowel Sounds and No Hepatosplenomegaly
Skin: No Rash and Normal Turgor
Psych: Mood/afflect pleasant and Insight/judgement good
Assessment/Plan
-
Assessment
Hyponatremia, acute on chronic
Chronic back pain with compression fractures
Hypertension
Hyperlipidemia
Hypothyroidism
Arthritis
Plan
-pain management per primary team
-samsca today
-FR 48oz/day
-will consider lasix 20 mg daily as outpatient
-follow BMP
Data Reviewed
-
MRI: Report Reviewed by me
Labs: Labs Reviewed by me
Old Records: Reviewed (Sodium levels from 2019 up to 2022 were reviewed in both [facility] and [facility]. Average range was 130)
--- NOTE | 2023-10-09 15:27 | CM ---
energy efficiency finance manager reviewed patient's chart and met with patient and patient lives with spouse in a multilevel home, patient is independent with adl's and uses a walker with ambulation. Patient states she has been going to outpatient therapy that was
recommended by her spine doctor and she would like to continue with that. Patient has a prescription plan and patient uses [facility] pharmacy.
PCP: Dr Ford
Plan; Home with spouse and outpatient PT/OT.
[2023-10-09 16:06] VITALS: BP 123/63
[2023-10-09] MEDS: SAMSCA 15 MG PO (16:48)
[2023-10-09] MEDS: LOVENOX 40 MG SC (16:48)
[2023-10-09] MEDS: SENOKOT-S PO (20:30)
[2023-10-09] MEDS: MIRALAX PO (20:30)
[2023-10-09] MEDS: TIMOPTIC 0.5% OPHTHALMIC SOLUTION RIGHT EYE (20:30)
[2023-10-09 22:31] VITALS: BP 105/58
[2023-10-09] MEDS: LOPRESSOR PO (23:42)
[2023-10-09] MEDS: TYLENOL PO (23:45)
[2023-10-09] MEDS: NEURONTIN PO (23:45)
[2023-10-10] MEDS: SYNTHROID 100 MCG PO (06:14)
[2023-10-10 07:55] VITALS: BP 121/70
--- NOTE | 2023-10-10 08:10 | W.PN.HOSP.TC ---
Today's Communication/Plan
-
Follow-up recommendations by Dr. Rizo
Assessment / Plan
Assessment / Plan
HPI: 83-year-old female with a past medical history of hypertension, hyponatremia, hypothyroidism, and chronic back pain from multilevel compression fractures status post ИВАН and MILD (minimally invasive lumbar decompression) procedure on 09/26/[address] Dale presents with intractable back pain, and acute on chronic ambulatory dysfunction.� Patient states that her pain got worse after undergoing PT on 10/01/2023.� She has severe intractable pain, and is unable to ambulate.
#Intractable back pain/spasms secondary to chronic compression fractures/spinal cord impingement
S/p Epidural injection 3 weeks ago
S/p MILD procedure 09/26/23
Pain worsened w/ PT on 10/01/23
Patient reports severe intractable pain with any type of movement or standing
Appreciate spine surgery, Dr. Rizo, spine MRI reviewed
Increased gabapentin to 200 mg 3 times a day
Continue IV dexamethasone, Flexeril, Tylenol 1 g scheduled
Follow-up recommendations by Dr. Rizo
PT recommends home versus outpatient PT
#Acute on chronic hyponatremia
Suspect secondary to excess ADH release from pain
Appreciate nephrology input, sodium improved to 130, from 126 status post Samsca 10/09
Continue fluid restriction, monitor sodium
#Hypothyroidism
Continue levothyroxine
Benign essential hypertension
Continue lisinopril 40 mg daily, metoprolol 100 mg 3 times daily, amlodipine 5 mg daily
#HLD
Continue Lipitor 20 mg daily
# Osteoporosis
Takes Fosamax 70 weekly on Sundays skipped 10/07/2023
#Hx glaucoma
DVT prophylaxis�subcu Lovenox
DNR as confirmed upon admission
Physical Exam
General: Appears to not feel well, no acute distress
HEENT: Normocephalic, Atraumatic, EOMI, MMM
Respiratory: Clear to Auscultation bilaterally
Cardiac: Normal S1/S2, Regular Rate and Rhythm
GI: Soft, Nontender, Nondistended, Normal Bowel Sounds
Extremities: No Clubbing, Cyanosis, or Edema
Musculoskeletal: Wearing brace
Anticipated Discharge: 24 - 48 hours
Subjective/Interval History
-
Date of Service: October 10, 2023
Patient is still in pain, but overall improved. She is able to sit up with a dull pain today, versus the excruciating pain from prior.
Objective Data
-
Labs:
Laboratory Results
10/10/23
06:32
Sodium Pending
Potassium Pending
Chloride Pending
Carbon Dioxide Pending
BUN Pending
Creatinine Pending
Glucose Pending
Calcium Pending
Vital Signs:
Vital Signs
Temp Pulse Resp BP Pulse Ox
98.7 F 72 16 121/70 94
10/10/23 07:55 10/10/23 07:55 10/10/23 07:55 10/10/23 07:55 10/10/23 07:55
I&O
10/09/23 10/10/23 10/11/23
06:59 06:59 06:59
Intake Total 720 / 720 2520 / 2520
Output Total 0 / 0 250 / 250
Balance 720 / 720 2270 / 2270
[2023-10-10] MEDS: LIDOCAINE 4% PATCH 1 PATCH TOPICAL (08:31)
[2023-10-10] MEDS: FLEXERIL 10 MG PO ×3 (08:33→22:03)
[2023-10-10] MEDS: ASPIR LOW (ENTERIC COATED) 81 MG PO (08:33)
[2023-10-10] MEDS: NEURONTIN 200 MG PO ×2 (08:33→17:23)
[2023-10-10] MEDS: TYLENOL 1000 MG PO ×2 (08:33→17:23)
[2023-10-10] MEDS: ZESTRIL 40 MG PO (08:33)
[2023-10-10] MEDS: TIMOPTIC 0.5% OPHTHALMIC SOLUTION 1 DROP RIGHT EYE (08:34)
[2023-10-10] MEDS: LIPITOR 20 MG PO (08:34)
[2023-10-10] MEDS: SENOKOT-S PO ×2 (08:34→19:17)
[2023-10-10] MEDS: LOPRESSOR 100 MG PO ×3 (08:34→22:03)
[2023-10-10] MEDS: DECADRON 4 MG IV ×2 (08:34→19:17)
[2023-10-10] MEDS: MIRALAX PO ×2 (08:34→19:17)
[2023-10-10 10:02] LABS: Blood Urea Nitrogen 30 mg/dl (7-17); Calcium 8.9 mg/dl (8.4-10.2); Carbon Dioxide 31 mmol/L (22-30); Chloride 92 mmol/L (98-107); Estimated Creatinine Clearance 43 ml/min; Glucose 113 mg/dl (70-99); Potassium 4.8 mmol/L (3.5-5.1); Sodium 130 mmol/L (135-145); eGFR > 60.00
--- NOTE | 2023-10-10 12:18 | PN.CDI ---
CDI
- -
CDI:
Physician Documentation Request
Admit Date: 10/08/23 13:19
Dear Doctor Do,
Please review the following and provide your response in the progress notes.
Clinical Indicators:
The diagnosis of Thoracic and cervical spinal cord compression was included in the signed MRI report.
MRI, 10/09
#At T12, there is a moderate to severe anterior compression deformity, stable and compatible with old fracture.
#...There is a retropulsed bony fragment
#...which does result in compression of the left anterior spinal cord and
#...mild central canal stenosis.
#On sagittal T2-weighted localizer sequence of the cervical spine,
#...there appears to be slight compression of the posterior margin of the
#...cervical spinal cord at the C3-4 level due to prominence of the interspinous ligament.
Please indicate in the progress notes if the above diagnosis is valid for this patient:
Compression thoracic and cervical spinal cord is a valid diagnosis (Please include it in your progress notes)
Compression thoracic and cervical spinal cord is not a valid diagnosis for this patient
Compression thoracic and cervical spinal cord is not yet confirmed but remains a suspected condition
Other
Use of terms such as suspected, likely, concern for, or probable are acceptable for a diagnosis that is being evaluated, monitored or treated as if it exists and can be coded in the inpatient setting, when documented at the time of discharge.
Thank you,
Tessie Nieves RN BSN CCDS
CDI Specialist
please contact via tiger text
Please use your independent medical judgment in providing your response.
--- NOTE | 2023-10-10 12:28 | PN.CDI ---
CDI
- -
CDI:
Physician Documentation Request
Admit Date: 10/08/23 13:19
Dear Doctor Do,
Please review the following and provide your response in the progress notes.
Clinical Indicators:
PN, 10/09
#Intractable back pain/spasms secondary to chronic compression fractures/spinal cord impingement
MRI, 10/09
IMPRESSION: Acute to subacute compression fracture of T10, new since previous MRI of the lumbar spine of May 21 2022. See above description.
Please clarify which of the following accurately represents the acuity of the thoracic compression fractures:
Acute T10 compression fracture
Acute on Chronic T10 compression fracture
Chronic compression fractures only
Other
Use of terms such as suspected, likely, concern for, or probable (associated with a specific diagnosis that is being evaluated, monitored, or treated as if it exists) are acceptable and can be coded in the inpatient setting, when documented at the
time of discharge.
Thank you,
Tessie Nieves RN BSN CCDS
CDI Specialist
please contact via tiger text
Please use your independent medical judgment in providing your response.
--- NOTE | 2023-10-10 12:34 | PN.CDI ---
CDI
- -
CDI:
Physician Documentation Request
Admit Date: 10/08/23 13:19
Dear Doctor Do,
Please review the following and provide your response in the progress notes.
Clinical Indicators:
PN, 10/09
#Intractable back pain/spasms secondary to
#...chronic compression fractures/spinal cord impingement
#OA
#...Takes Fosamax 70 weekly on Sundays skipped 10/07/2023
MRI, 10/09
#IMPRESSION: Acute to subacute compression fracture of T10,
#...new since previous MRI of the lumbar spine of May 21 2022. See above description.
Please clarify the following regarding the etiology of the documented compression fractures:
Multifactorial due to age related osteoporosis, idiopathic, etc.(please specify)
Other (please specify)
Type Fracture
Age-related With current pathological fx
Drug induced (specify drug) without current pathological fx
Idiopathic
Osteoporosis of disuse
Due to post surgical malabsorption
Post traumatic
Post oophorectomy osteoporosis
Use of terms such as suspected, likely, concern for, or probable (associated with a specific diagnosis that is being evaluated, monitored, or treated as if it exists) are acceptable and can be coded in the inpatient setting, when documented at the
time of discharge.
Thank you,
Tessie Nieves RN BSN CCDS
CDI Specialist
please contact via tiger text
Please use your independent medical judgment in providing your response.
--- NOTE | 2023-10-10 12:40 | PN.CDI ---
CDI
- -
CDI:
Physician Documentation Request
Admit Date: 10/08/23 13:19
Dear Doctor Do,
Please review the following and provide your response in the progress notes.
Clinical Indicators:
PN, 10/09
#Acute on chronic hyponatremia
#Suspect secondary to excess ADH release from pain
#Sodium 126 today, was 129 upon admission
#Continue fluid restriction, consult nephrology for possible Samsca
Nephrology consult, 10/09
#Hyponatremia, acute on chronic
#-samsca today
Laboratory Tests
10/08/23 10/09/23 10/10/23
09:20 06:31 06:32
Sodium 129 L 126 L 130 L
Based on the above and your clinical assessment, please clarify in the progress notes, the appropriate diagnosis, if significant, that supports the above abnormalities and additional evaluation, monitoring and/or treatment rendered:
Inappropriate secretion of ADH
Acute on Chronic hyponatremia without SIADH
Other
Use of terms such as suspected, likely, concern for, or probable (associated with a specific diagnosis that is being evaluated, monitored, or treated as if it exists) are acceptable and can be coded in the inpatient setting, when documented at the
time of discharge.
Thank you,
Tessie Nieves RN BSN CCDS
CDI Specialist
please contact via tiger text
Please use your independent medical judgment in providing your response.
[2023-10-10] MEDS: NORVASC 5 MG PO (13:50)
--- NOTE | 2023-10-10 14:18 | W.PN.UPDATE ---
Update Note
Progress Note Update
Pat improved
Able to ambulate in brace
Still struggling with transitioning
Should be good to go home in [place]
can help with care
Needs brace will up
--- NOTE | 2023-10-10 15:00 | CM ---
location manager reviewed patient's chart and plan is to home with outpatient physical therapy when stable.
Plan; Home with outpatient PT
[2023-10-10 15:57] VITALS: BP 117/62
--- NOTE | 2023-10-10 16:14 | W.PN.NEPH.PH ---
Today's Communication / Plan
-
FR and lasix 20mg daily
Assessment/Plan
-
Assessment
Hyponatremia, acute on chronic
Chronic back pain with compression fractures
Hypertension
Hyperlipidemia
Hypothyroidism
Arthritis
Plan
-pain management per primary team
sodium better at 130, s/p samsca
-FR 48oz/day
start lasix 20 mg daily
-follow BMP
-
-
Date of Service: October 10, 2023
CC / HPI / ROS
-
Chief Complaint:
hyponatremia
History of Present Illness:
sodium better at 130
Bp stable, no fever
Review of Systems:
no cp or sob
back pain controlled when not moved
Labs
-
Labs:
WBC 23.2 10^3/uL (4.8-10.8) H 10/08/23 09:20
RBC 5.06 10^6/uL (4.20-5.40) 10/08/23 09:20
Hgb 15.6 g/dL (12.0-16.0) 10/08/23 09:20
Hct 43.8 % (37.0-47.0) 10/08/23 09:20
Plt Count 385 10^3/uL (130-400) 10/08/23 09:20
Sodium 130 mmol/L (135-145) L 10/10/23 06:32
Potassium 4.8 mmol/L (3.5-5.1) 10/10/23 06:32
Chloride 92 mmol/L (98-107) L 10/10/23 06:32
Carbon Dioxide 31 mmol/L (22-30) H 10/10/23 06:32
BUN 30 mg/dl (7-17) H 10/10/23 06:32
Creatinine 0.8 mg/dL (0.6-1.0) 10/10/23 06:32
eGFR > 60.00 10/10/23 06:32
Glucose 113 mg/dl (70-99) H 10/10/23 06:32
Calcium 8.9 mg/dl (8.4-10.2) 10/10/23 06:32
Albumin 2.9 g/dl (3.5-5.0) L 10/09/23 06:31
Physical Exam
-
Vital Signs:
Vital Signs
Temp Pulse Resp BP Pulse Ox
99.3 F 76 18 117/62 93
10/10/23 15:57 10/10/23 15:57 10/10/23 15:57 10/10/23 15:57 10/10/23 15:57
Cardiovascular:: Regular rate and rhythm
Respiratory:: Bilateral: CTA
Lung Excursion:: Normal
Abdomen:: Nontender and Soft
Extremity Edema:: None: Bilateral:
Olivo Catheter: No
[2023-10-10] MEDS: LOVENOX 40 MG SC (17:22)
[2023-10-10] MEDS: LASIX 20 MG PO (17:23)
[2023-10-10] MEDS: TIMOPTIC 0.5% OPHTHALMIC SOLUTION RIGHT EYE (19:17)
[2023-10-10 22:03] VITALS: BP 118/63
[2023-10-10] MEDS: NEURONTIN PO (22:04)
[2023-10-10] MEDS: TYLENOL PO (22:04)
[2023-10-10 23:33] VITALS: BP 137/74
[2023-10-11] MEDS: SYNTHROID 100 MCG PO (05:11)
[2023-10-11 07:15] VITALS: BP 146/77
[2023-10-11] MEDS: LOPRESSOR 100 MG PO (07:51)
[2023-10-11] MEDS: LIPITOR 20 MG PO (07:52)
[2023-10-11] MEDS: SENOKOT-S 2 TABLET PO (07:52)
[2023-10-11] MEDS: MIRALAX PO (07:52)
[2023-10-11] MEDS: ASPIR LOW (ENTERIC COATED) 81 MG PO (07:53)
[2023-10-11] MEDS: FLEXERIL 10 MG PO (07:53)
[2023-10-11] MEDS: TYLENOL 1000 MG PO (07:53)
[2023-10-11] MEDS: ZESTRIL 40 MG PO (07:53)
[2023-10-11] MEDS: LIDOCAINE 4% PATCH 1 PATCH TOPICAL (07:53)
[2023-10-11] MEDS: NEURONTIN 200 MG PO (08:05)
[2023-10-11] MEDS: TIMOPTIC 0.5% OPHTHALMIC SOLUTION 1 DROP RIGHT EYE (08:05)
[2023-10-11] MEDS: DECADRON 4 MG IV (08:05)
--- NOTE | 2023-10-11 09:15 | W.PN.HOSP.TC ---
Addendum entered and electronically signed by Chico White MD 10/11/23 13:06:
Patient also has :
Compression thoracic and cervical spinal cord
Acute T10 compression fracture, multifactorial due to age related osteoporosis, and trauma
Inappropriate secretion of ADH
Original Note:
Today's Communication/Plan
-
Discharge today
Assessment / Plan
Assessment / Plan
HPI: 83-year-old female with a past medical history of hypertension, hyponatremia, hypothyroidism, and chronic back pain from multilevel compression fractures status post ИВАН and MILD (minimally invasive lumbar decompression) procedure on 09/26/[address] Dale presents with intractable back pain, and acute on chronic ambulatory dysfunction.� Patient states that her pain got worse after undergoing PT on 10/01/2023.� She has severe intractable pain, and is unable to ambulate.
#Intractable back pain/spasms secondary to chronic compression fractures/spinal cord impingement
S/p Epidural injection 3 weeks ago
S/p MILD procedure 09/26/23
Pain worsened w/ PT on 10/01/23
Patient reports severe intractable pain with any type of movement or standing
Appreciate spine surgery, Dr. Rizo, spine MRI shows
Acute to subacute compression fracture of T10, new since previous MRI of the lumbar spine of May 21 2022. See above description.
Chronic compression deformity of T12 with resultant focal kyphosis. Retropulsed bony fragment from the posterior and superior margin of T12 results in compression of the spinal cord and mild overall central canal stenosis. Stable appearance. No
evidence for myelopathic signal.
Changes of degenerative disc disease, mainly in the lumbar spine from L3-4 through L5-S1. At L4-5, grade 1 degenerative spondylolisthesis. Moderate to severe overall central canal stenosis and moderate to severe bilateral lateral recess stenosis.
Moderate bilateral foraminal narrowing.
Continue gabapentin to 200 mg 3 times a day
Improving on IV dexamethasone, Flexeril, Tylenol 1 g scheduled
No surgical intervention recommended by Dr. Rizo
Medically stable for discharge today on oral prednisone taper
Follow-up with Dr. Salgado or another pain management doctor in the office
#Acute on chronic hyponatremia
Suspect secondary to excess ADH release from pain
Appreciate nephrology input, sodium improved to 130, was 130, was 126 status post Samsca 10/09
Discharge on Lasix, fluid restriction
Follow-up with PCP for repeat BMP in 1 week
#Hypothyroidism
Continue levothyroxine
Benign essential hypertension
Continue lisinopril 40 mg daily, metoprolol 100 mg 3 times daily, amlodipine 5 mg daily
#HLD
Continue Lipitor 20 mg daily
# Osteoporosis
Takes Fosamax 70 weekly on Sundays skipped 10/07/2023
#Hx glaucoma
DVT prophylaxis�subcu Lovenox
DNR as confirmed upon admission
Updated on 10/11/2023
Physical Exam
General: Appears to not feel well, no acute distress
HEENT: Normocephalic, Atraumatic, EOMI, MMM
Respiratory: Clear to Auscultation bilaterally
Cardiac: Normal S1/S2, Regular Rate and Rhythm
GI: Soft, Nontender, Nondistended, Normal Bowel Sounds
Extremities: No Clubbing, Cyanosis, or Edema
Musculoskeletal: Wearing brace
Anticipated Discharge: Today
Subjective/Interval History
-
Date of Service: October 11, 2023
Patient continues to have pain, 2 out of 10 at rest, worse with movement and severe depending on the type of movement. Overall she has improved since admission.
Objective Data
-
Labs:
Laboratory Results
10/11/23
07:14
Sodium Pending
Potassium Pending
Chloride Pending
Carbon Dioxide Pending
BUN Pending
Creatinine Pending
Glucose Pending
Calcium Pending
Vital Signs:
Vital Signs
Temp Pulse Resp BP Pulse Ox
97.9 F 70 17 146/77 96
10/11/23 07:15 10/11/23 07:51 10/11/23 07:15 10/11/23 07:51 10/11/23 07:15
I&O
10/10/23 10/11/23 10/12/23
06:59 06:59 06:59
Intake Total 2520 / 2520 1340 / 1340
Output Total 250 / 250
Balance 2270 / 2270 1340 / 1340
[2023-10-11 09:37] LABS: Blood Urea Nitrogen 34 mg/dl (7-17); Calcium 8.3 mg/dl (8.4-10.2); Carbon Dioxide 30 mmol/L (22-30); Chloride 99 mmol/L (98-107); Estimated Creatinine Clearance 38 ml/min; Glucose 88 mg/dl (70-99); Potassium 4.7 mmol/L (3.5-5.1); Sodium 131 mmol/L (135-145); eGFR > 60.00
--- NOTE | 2023-10-11 12:51 | W.DCSUMMARY ---
Discharge Summary
Discharge Data
Date of Admission: 10/08/23
Date of Discharge: 10/11/23
-
Pending Results: No
Hospital Course
Discharge diagnosis:
Intractable back pain
Acute on chronic ambulatory dysfunction
Acute T10 compression fracture, multifactorial due to age-related osteoporosis and trauma
Mild compression of the thoracic and cervical spinal cord, no surgical intervention indicated
Hyponatremia due to inappropriate secretion of antidiuretic hormone
Constipation
Hypothyroidism
Essential hypertension
Hyperlipidemia
Osteoporosis
Consults: Spine surgery, nephrology
T/L Spine MRI:
Acute to subacute compression fracture of T10, new since previous MRI of the lumbar spine of May 21 2022. See above description.
Chronic compression deformity of T12 with resultant focal kyphosis. Retropulsed bony fragment from the posterior and superior margin of T12 results in compression of the spinal cord and mild overall central canal stenosis. Stable appearance. No
evidence for myelopathic signal.
Changes of degenerative disc disease, mainly in the lumbar spine from L3-4 through L5-S1. At L4-5, grade 1 degenerative spondylolisthesis. Moderate to severe overall central canal stenosis and moderate to severe bilateral lateral recess stenosis.
Moderate bilateral foraminal narrowing.
Hospital course:
83-year-old female with a past medical history of hypertension, hyponatremia, hypothyroidism, and chronic back pain from multilevel compression fractures status post ИВАН and MILD (minimally invasive lumbar decompression) procedure on 09/26/[address] Dale was admitted for intractable back pain, and acute on chronic ambulatory dysfunction.� Patient states that her pain got worse after undergoing PT on 10/01/2023.� She has severe intractable pain, and is unable to ambulate.
Patient was seen in conjunction with orthopedic spine surgery. She was treated with IV dexamethasone, Flexeril, lidocaine patches, Tylenol, and oxycodone as needed. T and L-spine MRI does show acute to subacute compression fracture of T10. There
is also mild thoracic cord compression. Dr. Rizo recommended pain control and PT.
After several days, her pain did improve. She continues to have pain, 2 out of 10 in intensity at rest, it can become quite severe with certain types of movement. She was able to participate with physical therapy, who recommends she continue
outpatient PT.
She did complain of constipation. She received an aggressive bowel regimen. She had multiple bowel movements. She will be discharged on
MiraLAX daily and sennosides twice a day.
Patient's hospital course was complicated by acute on chronic hyponatremia. She does have chronic hyponatremia. Her sodium upon admission was 129. She ranges anywhere from 128�133 in the past. TSH and morning cortisol were normal. She was
treated with a fluid restriction. Her sodium dropped to 126. Suspect this is due to excess ADH release in the setting of pain. She was seen in conjunction with nephrology, who treated the patient with Samsca and Lasix. Patient's sodium improved
to 131 upon discharge. Nephrology recommends she be discharged on Lasix 10 mg p.o. daily, and a fluid restriction. She needs to follow-up with her primary care doctor 1 week for repeat BMP.
Patient's multiple medical conditions have been optimized. She is medically stable for discharge. She will be discharged on a prednisone taper, acetaminophen 1 g 3 times daily, and oxycodone as needed. She needs to follow-up with her pain
management doctor, as well as her primary care doctor 1 week.
Disposition: Home with home care
Discharge planning: Required 50 minutes
Discharge Plan
-
Patient Disposition: Home with Home Care
Discharge Diagnosis/Procedures: Acute on chronic intractable back pain, new acute to subacute compression fracture of T10, chronic T12 compression fracture, degenerative disc disease, hyponatremia, ambulatory dysfunction
Condition: Fair
Diet: Restrict fluids to 48 oz
Activity: As tolerated
Blood Work: BMP with your primary care provider in 1 week
Other Services: PT
Activity Restrictions/Additional Instructions:
Please take Lasix/furosemide 10 mg daily, and adhere to a 48 ounce fluid restriction.
Doing these 2 things will prevent your sodium from going lower.
Your sodium was 131 on the day of discharge, it was as low as 126 in the hospital.
Please follow-up with your primary care doctor in 1 week for repeat sodium check.
Please follow-up with your usual pain management doctor, or establish care with a new one if you would like.
Referrals:
Tim Ford MD [Family Provider] - in one week
Prescriptions:
New
acetaminophen [Tylenol Extra Strength] 500 mg Tablet
1,000 mg PO TID Qty: 180 0RF
prednisone 10 mg tablet
See Rx Instructions .ROUTE .COMPLEX Qty: 30 0RF
Rx Instructions:
4 t daily x 3 days, then
3 t daily x 3 days, then
2 t daily x 3 days, then
1 tab daily x 3 days, then stop
furosemide [Lasix] 20 mg tablet
10 mg PO DAILY Qty: 30 0RF
polyethylene glycol 3350 17 gram/dose powder
17 g PO DAILY Qty: 510 0RF
oxycodone 5 mg tablet
5 mg PO TID PRN (Reason: Pain) Qty: 30 0RF
Continued
atorvastatin 20 mg Tablet
20 mg PO DAILY
metoprolol tartrate 100 mg Tablet
100 mg PO TID
alendronate 70 mg Tablet
70 mg PO SAWANT@0800
amlodipine 5 mg Tablet
5 mg PO NOON
aspirin 81 mg Tablet,Delayed Release (Dr/Ec)
81 mg PO DAILY
levothyroxine 100 mcg Tablet
100 mcg PO DAILY
Pepto-Bismol 262 mg Tablet
524 mg PO ONCE PRN (Reason: diarrhea)
gabapentin 100 mg Capsule
200 mg PO TID
timolol maleate 0.5 % Gel Forming Solution
1 drp RIGHT EYE DAILY
lisinopril 40 mg Tablet
40 mg PO DAILY
jffjyuxlyqnz-cksipxim-wmzxgm Tablet
1 tab PO .LUNCHTIME
camphor-methyl salicyl-menthol Adhesive Patch,Medicated
1 patch TOPICAL DAILYPRN PRN (Reason: apply to back)
Salonpas gel
1 applic topical DAILYPRN PRN (Reason: apply to waist)
Changed
sennosides [Senokot] 8.6 mg Tablet
17.2 mg PO BID Qty: 0 0RF
Discontinued
acetaminophen 325 MG tablet
650 mg PO Q6HPRN PRN (Reason: mild pain)
prednisone 10 mg Tablet
10 mg PO .TAPER
Patient Comments:
10/08/2023, pt. states to have taken 5th day of taper today.
Rx Instructions:
10/08/2023,
40 mg x 3 days
30 mg x 3 days
20 mg x 3 days
10 mg x 3 days
Discharge Orders:
Discharge Patient (As Directed); Ordered 10/11/23
Ordered By: Chico White
Discharge Date and Time
Discharge Date/Time: 10/11/23 15:44
[2023-10-11 13:18] VITALS: BP 111/63; PULSE 85; O2SAT 98
[2023-10-11] MEDS: NORVASC 5 MG PO (13:23)
--- NOTE | 2023-10-11 14:50 | CM ---
Patient seen bedside.
Discussed d/c plan with patient and spouse.
patient interested in [facility].
Referral to nurse liaison.
IMM reviewed and signed.
Plan: home with [facility]
--- NOTE | 2023-10-11 15:10 | VNURNOTE ---
Home Health Liaison spoke with patient at 1500 to discuss [facility] nurse/therapy, visits, schedule and homebound status. Patient is agreeable and understands that visits at home will be 2-3 x per week to assess and teach medical management.
Patient is aware that [facility] will contact them for start of care in 1-2 days after discharge from .
[facility] referral completed in [facility].
== END 2023-10-11 15:44 | disposition home health service (06) | DRG 543 ==
LOC: 4 WEST ACU 13:19
PROVIDERS: Clinical Nurse Specialist Family Health; Physician Assistant; ADMITTING PHYSICIAN Family Medicine; CONSULT PHYSICIAN Orthopaedic Surgery Orthopaedic Surgery of the Spine; CONSULT PHYSICIAN Specialist; EMERGENCY PHYSICIAN Emergency Medicine; FAMILY PHYSICIAN Family Medicine
DX: M80.08XA Age-related osteoporosis with current pathological fracture, vertebra(e), initial encounter for fracture (principal); E22.2 Syndrome of inappropriate secretion of antidiuretic hormone; Z16.24 Resistance to multiple antibiotics; M51.06 Intervertebral disc disorders with myelopathy, lumbar region; M54.9 Dorsalgia, unspecified; I10 Essential (primary) hypertension; E03.9 Hypothyroidism, unspecified; E78.00 Pure hypercholesterolemia, unspecified; F32.A Depression, unspecified; F41.9 Anxiety disorder, unspecified; G89.29 Other chronic pain; M48.04 Spinal stenosis, thoracic region; M48.061 Spinal stenosis, lumbar region without neurogenic claudication; R32 Unspecified urinary incontinence; K59.00 Constipation, unspecified; I1A.0 Resistant hypertension; R26.2 Difficulty in walking, not elsewhere classified; Z66 Do not resuscitate; R73.9 Hyperglycemia, unspecified; M51.37 Other intervertebral disc degeneration, lumbosacral region; M62.830 Muscle spasm of back; K21.9 Gastro-esophageal reflux disease without esophagitis; H40.9 Unspecified glaucoma; M19.90 Unspecified osteoarthritis, unspecified site; Z88.6 Allergy status to analgesic agent; Z79.890 Hormone replacement therapy; Z79.82 Long term (current) use of aspirin; Z79.891 Long term (current) use of opiate analgesic; Z86.73 Personal history of transient ischemic attack (TIA), and cerebral infarction without residual deficits; Z88.1 Allergy status to other antibiotic agents; Z88.2 Allergy status to sulfonamides; Z88.8 Allergy status to other drugs, medicaments and biological substances; Z79.83 Long term (current) use of bisphosphonates
CPT/HCPCS: 51798; 72131; 72146; 72148; 80048; 80053; 81003; 81015; 82248; 83036; 83930; 83935; 84300; 84439; 84443; 85025; 87086; 96374; 96375; 97116; 97163; 97166; 97530; 99285

== ENCOUNTER 2023-12-01 18:00 | Inpatient (IN) | payer OTHER, SELFPAY ==
[2023-12-01] VITALS (10 sets, daily range): BP systolic 40–151; BP diastolic 41–77; BMI 24.5
[2023-12-01] MEDS: NSS 1000 IV ×2 (11:54→16:49)
[2023-12-01] MEDS: ZOFRAN 4 MG IV (11:55)
[2023-12-01] MEDS: DILAUDID 0.5 MG IV (11:55)
[2023-12-01 12:11] LABS: % Basophils 0.4 % (0-2); % Eosinophils 0.1 % (0-6); % Immature Granulocytes 0.5 % (0-0.5); % Lymphocytes 10.5 % (20.5-51.1); % Monocytes 8.5 % (1.7-9.3); Absolute Basophils 0.1 10^3/uL (0-0.2); Absolute Immature Granulocytes 0.1 10^3/uL (0-0.05); Absolute Lymphocytes 2.1 10^3/uL (1.2-3.4); Absolute Monocytes 1.7 10^3/uL (0.1-0.6); Hematocrit 37.3 % (37.0-47.0); Hemoglobin 12.5 g/dL (12.0-16.0); Mean Corp Hgb Conc. 33.5 g/dL (33.0-37.0); Mean Corpuscular Hgb 30.7 pg (27.0-31.0); Mean Corpuscular Volume 91.6 fL (81.0-99.0); Mean Platelet Volume 8.6 fL (7.4-10.4); Nucleated Red Blood Cells % 0 %; Platelet Count 352 10^3/uL (130-400); Red Blood Cell Count 4.07 10^6/uL (4.20-5.40); Red Cell Dist. Width 13.8 % (11.5-14.5); White Blood Cell Count 20.1 10^3/uL (4.8-10.8)
[2023-12-01 12:19] LABS: ALT (SGPT) 14 U/L (0-35); AST (SGOT) 26 U/L (14-36); Albumin 3.4 g/dl (3.5-5.0); Alkaline Phosphatase 94 U/L (38-126); Blood Urea Nitrogen 12 mg/dl (7-17); Calcium 8.9 mg/dl (8.4-10.2); Carbon Dioxide 29 mmol/L (22-30); Chloride 94 mmol/L (98-107); Estimated Creatinine Clearance 55 ml/min; Glucose 120 mg/dl (70-99); Lipase 69 U/L (23-300); Sodium 127 mmol/L (135-145); Total Bilirubin 1.9 mg/dl (0.2-1.3); Total Protein 6.1 g/dl (6.3-8.2); eGFR > 60.00
--- NOTE | 2023-12-01 13:18 | ED.GENMED ---
History of Present Illness
General
Chief Complaint: Abdominal Pain
Source: patient
Exam Limitations: none
Time Seen by Provider: 12/01/23 10:54
Nursing documentation reviewed up to this point in time: agreed with
Travel History
Have you had any contact with someone who has COVID-19?: No
Do you have any symptoms of coronavirus? Fever > 100 degrees, chills, cough, shortness of breath, sore throat, loss of taste or smell, muscle aches, or headache?: No
History of Present Illness
History of Present Illness:
Patient is an 83-year-old female presents to the emergency department complaining of increasing right upper quadrant abdominal pain that started yesterday and is getting worse. Patient states going over bumps or any movement makes the pain worse.
Patient denies any nausea or vomiting but admits to weakness and decreased appetite. Patient denies fever or chills, diarrhea or constipation. Patient denies any symptoms. Patient denies any chest pain, shortness of breath or palpitations.
Patient was on amlodipine but developed edema in her feet and was stopped. However the patient was then placed on Cymbalta which she did not realize was for depression.
Past History
Past History
ED Past Medical History: HTN, Hypothyroidism and Other (TIA)
ED Past Surgical History: Gynecological and Tonsilectomy
Patient has exhibited threatening behavior?: No
PSI?: No
Social History
Tobacco: Non-smoker
Alcohol: Occasional
Personal:
Living: with family
Employment: Retired
Family History
Family History: Other (Noncontributory)
Review of Systems
Review of Systems
All Other Systems: ROS reviewed and negative except as documented in HPI and ROS
Constitutional: Reports fatigue; Denies fever or chills
EENT: Reports no symptoms
Respiratory: Reports no symptoms
Cardiac: Reports no symptoms
ABD/GI: Reports abdominal pain and anorexia; Denies nausea, vomiting, diarrhea or constipated
: Reports no symptoms
Musculoskeletal: Reports no symptoms
Skin: Reports no symptoms
Neurological: Reports no symptoms
Hematologic/Lymphatic: Reports no symptoms
Phy Exam
Physical Exam
Physical Exam:
Physical Exam
General: moderate distress, alert and appropriate, well nourished, well hydrated
HENT: Normocephalic, supple with no lymphadenopathy, no thyromegaly
Eyes: Clear sclera, conjuctiva without injection
Heart: Regular rhythm and rate. No S3, S4. No murmur.
Lungs: No respiratory distress, no stridor, lung sounds clear and equal bilaterally
Abdomen: Soft, moderate to severe abdominal tenderness greatest in the right upper quadrant with guarding and rebound, no organomegaly, no CVA tenderness, BS diminished
Neuro: Alert and oriented x 3, CN II - XII intact, no motor focality, no cerebellar dysfunction
Skin: no rash
Psychiatric: well kept. interactive and cooperative
Extremities: No edema, cyanosis, tenderness
Scores
Heart Failure Risk
Heart Failure Risk Score: Not Applicable
Heart Score for Chest Pain Patients
STEMI patient?: Not applicable
Withdrawal Assessment of Alcohol
Withdrawal Assessment Completed?: Not applicable
Course
Orders/Labs/Results
Orders:
Orders
12/01/23 11:39
CT Abd/Pel (IV only)-[facility] only Urgent
Comment:
Reason For Exam: diffuse pain/tender greatest RUQ
0.9% Sodium Chloride 1000 ml [Nss] 1,000 ml IV BOLUS
HYDROmorphone [Dilaudid] 0.5 mg IV NOW STA
Ondansetron Injectable [Zofran] 4 mg IV NOW STA
12/01/23 11:45
Complete Blood Count/With Diff Urgent
Comprehensive Metabolic Panel Urgent
Lipase Urgent
12/01/23 13:46
Piperacillin/Tazo 3.375 Gram [Zosyn] 3.375 gram in 50 ml IV NOW
12/01/23 14:02
Dexamethasone Sod Phosphate [Decadron] 20 mg .ROUTE .STK-MED ONE
Lidocaine HCl/Pf [Xylocaine-Mpf 1% Vial] 50 mg .ROUTE .STK-MED ONE
Ondansetron Injectable [Zofran] 4 mg .ROUTE .STK-MED ONE
Propofol [Diprivan] 20 ml .ROUTE .STK-MED
Rocuronium Arbela [Rocuronium] 50 mg .ROUTE .STK-MED ONE
12/01/23 14:03
Fentanyl Citrate/Pf [Sublimaze] 100 mcg .ROUTE .STK-MED ONE
12/01/23 14:12
Bupivacaine Mpf 0.25% [Sensorcaine-Mpf 0.25% Vial] 30 ml .ROUTE .STK-MED ONE
12/01/23 14:17
Admit Patient As Directed
Co-Sign Provider:
Level of Care: Post Proc/Surg Recovery
Assign to:: Medical/Surgical
Physician / Group: Valerie / ERNESTO
Diagnosis: Acute appendicitis
Reason for Overnight Stay: Standard of Care
Code Status As Directed
Resuscitation Status: Full Code
HYDROmorphone [Dilaudid] 0.25 mg IV Q2HPRN PRN
Ondansetron Injectable [Zofran] 4 mg IV Q6HPRN PRN
Activity As Directed
Activity Level: Ambulate
Intake/ Output As Directed
Frequency: Per unit guidelines
Vital Signs As Directed
Frequency: Per unit guidelines
DX Deep Vein Thrombosis Video Routine
12/01/23 14:18
Pneumatic Compression Sleeves As Directed
Type: Thigh high
O2 Therapy [RESP] Routine
Titrate/Wean O2 to maintain O2 sat greater than (%): 90
Rx Incentive Spirometry [RESP] Routine
Frequency: q1h while awake
# of times per hour: 10
04/20/24 14:23
HYDROmorphone [Dilaudid] 0.25 mg IV PACU-Q5MPRN PRN
HYDROmorphone [Dilaudid] 0.5 mg IV PACU-Q5MPRN PRN
Meperidine [Demerol] 12.5 mg IV PACU-Q5MPRN PRN
Ondansetron Injectable [Zofran] 4 mg IV PACU-ONCEPRN PRN
Prochlorperazine [Compazine] 5 mg IV PACU-ONCEPRN PRN
Notify MD As Directed
Notify physician if: for SDS patients with known or suspected sleep obstructive sleep apnea, monitor in the
PACU.
Notify MD for any apneic/desaturation episodes
O2 Therapy [RESP] Urgent
Titrate/Wean O2 to maintain O2 sat greater than (%): 92
Special Instructions: -Provide supplemental oxygen to achieve O2 sat of 92% or greater.
-After 15 min, may wean O2 and discontinue if patient is able to maintain O2 sat of 92%
or greater during recovery period.
If patient is a discharge home, without oxygen therapy, notify anestheiologist if
unable to maintain O2 SAT of 92% or greater on room air for MD clearance.
12/01/23 14:30
0.9% Sodium Chloride 1000 ml [Nss] 1,000 ml IV 100 mls/hr
Normosol (Mult Electrolytes) [Normosol-R] 1,000 ml IV PER PROTOCOL
12/01/23 15:14
Acetaminophen 1000MG/100Ml [Ofirmev] 1,000 mg in 100 ml .ROUTE .STK-MED
12/01/23 15:35
Phenylephrine HCl/0.9% NaCl [Ernesto-Synephrine] 1,000 mcg .ROUTE .STK-MED ONE
12/01/23 15:36
Sugammadex Sodium [Bridion] 200 mg .ROUTE .STK-MED ONE
12/01/23 16:00
Acetaminophen [Tylenol] 650 mg PO Q4HWA
Piperacillin/Tazo 3.375 Gram [Zosyn] 3.375 gram in 50 ml IV Q6H
12/02/23 08:00
Pantoprazole [Protonix IV] 40 mg IV DAILY
12/02/23 18:00
Enoxaparin Sodium [Lovenox] 40 mg SC QPM
Abnormal Lab Results
12/01/23
11:45
WBC 20.1 H 10^3/uL
(4.8-10.8)
RBC 4.07 L 10^6/uL
(4.20-5.40)
Abs Immat Gran (auto) 0.1 H 10^3/uL
(0-0.05)
Absolute Neuts (auto) 16.0 H 10^3/uL
(1.4-6.5)
Absolute Monos (auto) 1.7 H 10^3/uL
(0.1-0.6)
Neutrophils % 80.0 H %
(42.2-75.2)
Lymphocytes % 10.5 L %
(20.5-51.1)
Sodium 127 L mmol/L
(135-145)
Chloride 94 L mmol/L
(98-107)
Glucose 120 H mg/dl
(70-99)
Total Bilirubin 1.9 H mg/dl
(0.2-1.3)
Total Protein 6.1 L g/dl
(6.3-8.2)
Albumin 3.4 L g/dl
(3.5-5.0)
12/01/23 11:45
12/01/23 11:45
Vital Signs
Initial and Last Documented VS:
Initial Vital Signs
Temp Pulse BP Pulse Ox
98.8 F 85 130/65 94
12/01/23 10:20 12/01/23 10:20 12/01/23 10:20 12/01/23 10:20
Last Documented Vital Signs
Temp Pulse BP Pulse Ox
98.8 F 85 130/65 94
12/01/23 10:20 12/01/23 10:20 12/01/23 10:20 12/01/23 10:20
*Radiology
Radiology exam reviewed: radiology read reviewed (Acute appendicitis)
*Pulse Oximetry
Patient hypoxic: no
*EKG
Interpreted by ED Provider?: NA
*Learning Solutions Specialist Interpretation
Rate: Learning Solutions Specialist- N/A
*Critical Care Note
Total Time (30-74mins, 75-104mins- exclusive of procedures): Not Applicable
ED Attending Note
-
Portions of this chart may have been created with voice recognition software.� Occasional wrong word or��sound alike� substitutions may have occurred due to the inherent limitations of voice recognition software.
Discharge Plan
Departure
Patient Disposition: Admit
Date of Disposition: 12/01/23
Time of Disposition: 13:23
Admit to: Telemetry
Admit to doctor: General surgery
Presentation/result/management discussed w/ accepting MD/DO: General surgery
Patient with high blood pressure during this ER visit?: No
Condition: Serious
Covid-19: Not Applicable
Discharge Problem:
Acute appendicitis
Prescriptions:
No Action
atorvastatin 20 mg Tablet
20 mg PO DAILY
metoprolol tartrate 100 mg Tablet
100 mg PO TID
alendronate 70 mg Tablet
70 mg PO SAWANT@0800
aspirin 81 mg Tablet,Delayed Release (Dr/Ec)
81 mg PO DAILY
levothyroxine 100 mcg Tablet
100 mcg PO DAILY
timolol maleate 0.5 % Gel Forming Solution
1 drp RIGHT EYE DAILY
lisinopril 40 mg Tablet
40 mg PO DAILY
vceydeokvugg-awbflkeb-rjegux Tablet
1 tab PO NOON
furosemide [Lasix] 20 mg tablet
10 mg PO DAILY Qty: 30 0RF
terazosin 1 mg Capsule
1 mg PO HS
duloxetine [Cymbalta] 20 mg Capsule,Delayed Release(Dr/Ec)
20 mg PO DAILY
Referrals:
Tim Ford MD [Family Provider] -
Interventions
Interventions:
*Risk Screen - Suicide Last Done: 12/01/23 12:02
*General Assessment Last Done: 12/01/23 12:02
*Neglect/Abuse Screening Last Done: 12/01/23 12:02
ED- Fall Risk Assessment Last Done: 12/01/23 12:01
*ED COVID-19 Vaccine History Last Done: 12/01/23 12:01
*Nursing Disposition Last Done: 12/01/23 14:20
LW-Cwhexv-Kqumvitpyq Assessment Last Done: 12/01/23 12:02
Discharge Date and Time
Discharge Date/Time: 12/01/23 14:20
Print Language: SINHALA
--- NOTE | 2023-12-01 14:10 | HPS.HSE ---
Family Physician
-
Family Physician: Tim Ford
Chief Complaint
-
RIGHT-sided abdominal pain
History of Present Illness
Patient is an 83 yo F with a PMH of HTN, HLD, CVA c/b LUE weakness, hypothyroidism, osteoporosis, s/p cervical spine fractures, s/p laparoscopic tubal ligation. Ms. Peña presents to the hospital with 24 to 48 hours of RIGHT-sided abdominal pain.
She states that her symptoms began acutely yesterday afternoon. Prior to this she states that she was in decent health, though she complains of chronic medical issues. No nausea or vomiting. No fevers or chills. No fluctuations in bowel habits
or urination. No recent colonoscopy.
Medical History
Past Medical History
Past Medical History: Reports CVA, HTN, Hypercholesterolemia and Hypothyroidism
Past Surgical History: Reports Gynocological (Laparoscopic tubal ligation)
Social History
Tobacco: Non-smoker
Alcohol: None
Drug: None
Personal:
Living: With Family
Family History
Family History: Not pertinent
Allergies / Home Medications
Allergies reflects when Allergies were last updated in webtide.
Home Medications with original date entered in webtide
Allergy/Medication List:
Listed medications to nifedipine, spironolactone, amlodipine, ciprofloxacin, HCTZ, ibuprofen, Flagyl, and sulfa
Review of Systems
-
A 12 point ROS was completed and negative except as noted: Yes
Physical Exam
Vital Signs
Vital Signs
Temp Pulse BP Pulse Ox
98.8 F 85 130/65 94
12/01/23 10:20 12/01/23 10:20 12/01/23 10:20 12/01/23 10:20
Physical Exam
General: Well Developed, Well Nourished and No Apparent Distress
HEENT: NormoCephalic and Anicteric
Respiratory: Non Labored Respirations
Cardiac: Regular Rhythm
GI: Soft, Tender (RLQ, though diffusely), Distended and Other (Involuntary guarding, negative rebound)
Musculoskeletal: No Edema
Skin: Warm and Dry
Neuro: Other (LEFT-sided upper extremity weakness)
Laboratory Results
-
12/01/23 11:45
12/01/23 11:45
Laboratory Results
Total Bilirubin 1.9 mg/dl (0.2-1.3) H 12/01/23 11:45
AST 26 U/L (14-36) 12/01/23 11:45
ALT 14 U/L (0-35) 12/01/23 11:45
Alkaline Phosphatase 94 U/L (38-126) 12/01/23 11:45
Lipase 69 U/L (23-300) 12/01/23 11:45
Data Reviewed
-
CT Scan: Image Personally Visualized and interpreted and Report Reviewed by me
Lab Data: Labs Reviewed by me
Impression/Plan
-
IMPRESSION:
Patient is a 83 yo F p/w acute appendicitis
The natural history and pathophysiology of appendicitis was discussed. CT scan imaging as it relates to her appendix was reviewed. Significant amount of inflammation surrounding her appendix, as well as retrocecal location. Increased likelihood
of perforation and potential need for open operation. Options for management including medical management with antibiotics versus surgical management with appendectomy were considered and discussed. The pros and cons of both approaches was
discussed. Specifically, we discussed failure of medical management and worsening of her infectious state, as well as recurrent episodes of appendicitis, versus surgical risks.
Plan for a laparoscopic possible open appendectomy. The procedure itself, as well as the risks, benefits, and alternatives was discussed. Specifically, we discussed the risks of bleeding, infection (potential increased risk pending operative
findings), injury to surrounding structures (bowel, bladder), staple line leak, need for open procedure. Typical postprocedure recovery was discussed. All questions answered. Consent signed.
Of note, patient does not have a prior DNR. She does express that she does not want prolonged chest compressions or intubation. We discussed that she will be full code for 24 hours during the time of her operation.
PLAN:
-- Laparoscopic possible open appendectomy
-- NPO, IVF
-- Zosyn
-- Admit post-operatively
--- NOTE | 2023-12-01 14:17 | W.SUR.PREOP ---
Pre-Operative Surgical Note
-
I have examined this patient prior to the performance of the scheduled procedure.
The patient's condition is unchanged from the time of the current History and
Physical and the patient is able to undergo the scheduled procedure.
--- NOTE | 2023-12-01 16:00 | W.IMMPOSTOP ---
Addendum entered and electronically signed by Kahlil Padilla MD 12/01/23 16:38:
[facility]#[id number]
Original Note:
Surgical Immed Post Op Note
-
Primary Surgeon: Valerie
Assisting Surgeon: None
Pre-op Diagnosis: Acute appendicitis
Post-op Diagnosis: Acute appendictis
Procedure Performed: Laparoscopic appendectomy
Anesthesia Type: General
Specimen / Cultures:
1. Appendix
Estimated Blood Loss: 3 cc
Complications: None
Operative Findings:
1. Severely inflamed gangrenous appendix up to base, TI in close approximation
2. Mesentery taken with Ligasure, base with purple load stapler
3. 19 Fr Garcia drain into pelvis and overlying staple line
[2023-12-01] MEDS: TYLENOL PO ×2 (18:03→23:24)
[2023-12-01] MEDS: TYLENOL 650 MG PO (20:47)
[2023-12-01] MEDS: ZOSYN 50 IV (20:48)
[2023-12-02] MEDS: ZOSYN 50 IV ×4 (02:56→19:55)
[2023-12-02] MEDS: NSS 1000 IV ×3 (02:57→22:50)
[2023-12-02 03:00] VITALS: BP 148/71
[2023-12-02] MEDS: TYLENOL 650 MG PO ×6 (03:03→22:50)
[2023-12-02] MEDS: PROTONIX IV 40 MG IV (07:25)
[2023-12-02] MEDS: NSS (PRESERVATIVE FREE) 10 ML IV (07:25)
[2023-12-02 07:48] VITALS: BP 150/78
--- NOTE | 2023-12-02 07:48 | W.PN.GS2 ---
Today's Communication / Plan
-
-- Sips of clears
-- IVF
-- Pain control: Tylenol and low dose IV Dilaudid PRN
-- Abx: Zosyn
-- Home BB ordered IV
Assessment / Plan
-
Patient is a 83 yo F POD#1 s/p laparoscopic appendectomy
Recovering well. No major post-operative concerns.
-- Sips of clears
-- IVF
-- Pain control: Tylenol and low dose IV Dilaudid PRN
-- Abx: Zosyn
-- Home BB ordered IV, ivan others for now
-- Lovenox for DVT
-- Protonix for GI
Subjective Data
-
Date of Service: December 02, 2023
Complaints of abdominal pain. No nausea or emesis. No fevers. No flatus or BM.
Objective Data
-
Intake and Output
12/01/23 12/02/23 12/03/23
06:59 06:59 06:59
Intake Total 1700 / 1700
Output Total 90 / 90
Balance 1610 / 1610
Intake:
Oral fluids 300 / 300
IV fluids (Total) 1350 / 1350
Normosol 150 / 150
IV piggybacks 50 / 50
Output:
Drain Output (Total) 90 / 90
Left Middle Abdomen Bacilio- 90 / 90
Levine A
Other:
Number of approximated SMALL 1
amounts of urine
Number of approximated MODERATE 2
amounts of urine
Vital Signs
Temp Pulse Resp BP Pulse Ox
97.6 F 70 17 148/71 93
12/02/23 03:00 12/02/23 03:00 12/02/23 03:00 12/02/23 03:00 12/02/23 03:00
Calcium 8.9 mg/dl (8.4-10.2) 12/01/23 11:45
Total Bilirubin 1.9 mg/dl (0.2-1.3) H 12/01/23 11:45
AST 26 U/L (14-36) 12/01/23 11:45
ALT 14 U/L (0-35) 12/01/23 11:45
Alkaline Phosphatase 94 U/L (38-126) 12/01/23 11:45
Total Protein 6.1 g/dl (6.3-8.2) L 12/01/23 11:45
Albumin 3.4 g/dl (3.5-5.0) L 12/01/23 11:45
Physical Exam
-
Gen: NAD
Abd: soft, tender diffusely, distended, tympanitic, non-peritoneal, KEE serosang, incisions c/d/i - no erythema, or drainage, mild ecchymosis
[2023-12-02 08:47] LABS: Hematocrit 32.7 % (37.0-47.0); Hemoglobin 11.3 g/dL (12.0-16.0); Mean Corp Hgb Conc. 34.6 g/dL (33.0-37.0); Mean Corpuscular Hgb 30.7 pg (27.0-31.0); Mean Corpuscular Volume 88.9 fL (81.0-99.0); Mean Platelet Volume 8.7 fL (7.4-10.4); Platelet Count 337 10^3/uL (130-400); Red Blood Cell Count 3.68 10^6/uL (4.20-5.40); Red Cell Dist. Width 13.6 % (11.5-14.5); White Blood Cell Count 13.4 10^3/uL (4.8-10.8)
[2023-12-02 08:51] LABS: Blood Urea Nitrogen 9 mg/dl (7-17); Calcium 7.8 mg/dl (8.4-10.2); Carbon Dioxide 26 mmol/L (22-30); Chloride 100 mmol/L (98-107); Estimated Creatinine Clearance 55 ml/min; Glucose 122 mg/dl (70-99); Potassium 3.8 mmol/L (3.5-5.1); Sodium 129 mmol/L (135-145); eGFR > 60.00
[2023-12-02] MEDS: DILAUDID 0.25 MG IV ×2 (09:38→17:04)
[2023-12-02] MEDS: LOPRESSOR 100 MG PO ×3 (09:39→19:55)
[2023-12-02 12:08] VITALS: BP 140/64
[2023-12-02 15:17] VITALS: BP 137/68
--- NOTE | 2023-12-02 16:03 | CM ---
Addendum entered by Flaca Nevarez RN 12/02/23 16:15:
Pt not in care port .
Original Note:
Alert awake oriented patient who lives with Mckenna at [facility]. She is independent in driving and all activities of daily living.Offered VN she is unsure of need. spoke with her .She is postop.
[facility] hx
Pharmacy [facility] [place]
PCP Dr Ford
PLAN Home unsure on wanting VN
[2023-12-02] MEDS: LOVENOX 40 MG SC (16:57)
[2023-12-02] MEDS: ZOFRAN 4 MG IV (22:49)
[2023-12-02 23:00] VITALS: BP 153/73
[2023-12-03] MEDS: NSS 1000 IV (02:15)
[2023-12-03] MEDS: ZOSYN 50 IV ×4 (02:15→19:52)
--- NOTE | 2023-12-03 02:56 | PTCARENOTE ---
pt has opened her J-P drain 3x this shift, education and support given. Pt is forgetful and confused.
[2023-12-03] MEDS: TYLENOL 650 MG PO ×5 (03:42→19:51)
[2023-12-03 07:27] VITALS: BP 150/72
[2023-12-03 08:16] LABS: Hematocrit 35.9 % (37.0-47.0); Mean Corp Hgb Conc. 33.4 g/dL (33.0-37.0); Mean Corpuscular Hgb 30.5 pg (27.0-31.0); Mean Corpuscular Volume 91.3 fL (81.0-99.0); Mean Platelet Volume 8.8 fL (7.4-10.4); Platelet Count 460 10^3/uL (130-400); Red Blood Cell Count 3.93 10^6/uL (4.20-5.40); Red Cell Dist. Width 13.8 % (11.5-14.5)
--- NOTE | 2023-12-03 08:17 | W.PN.GS2 ---
Addendum entered and electronically signed by Haile Mata MD 12/03/23 17:03:
The patient does have some mild hyponatremia that is resolving with fluid resuscitation
Original Note:
Today's Communication / Plan
-
Restarting home meds.
Continue clears.
PT OT out of bed and ambulate today.
And incentive spirometer reviewed with patient.
Assessment / Plan
-
Patient is a 83 yo F POD#2 s/p laparoscopic appendectomy. Mild ileus, otherwise recovering as expected.
-- Continue clears
-- IVFs
-- Pain control: Tylenol and low dose IV Dilaudid PRN
-- Abx: Zosyn
-- Restart home meds. Continue holding Lasix.
-- Bowel regimen
-- Lovenox for DVT
-- Protonix for GI
Time Spent
Total Time Spent with Patient (in minutes): 20
Subjective Data
-
Date of Service: December 03, 2023
Interval Events:
No acute events overnight. Sad, somewhat despondent. Pain Controlled. Denies Nausea/Vomiting, +bowel function. Tolerating clears.
Objective Data
-
Intake and Output
12/02/23 12/03/23 12/04/23
06:59 06:59 06:59
Intake Total 1700 / 1700 3820 / 3820
Output Total 90 / 90 415 / 415
Balance 1610 / 1610 3405 / 3405
Intake:
Oral fluids 300 / 300 1620 / 1620
IV fluids (Total) 1350 / 1350 2100 / 2100
Normosol 150 / 150
IV piggybacks 50 / 50 100 / 100
Output:
Drain Output (Total) 90 / 90 115 / 115
Left Middle Abdomen Bacilio- 90 / 90 115 / 115
Levine A
Urine, Voided 300 / 300
Other:
Number of approximated SMALL 1 1
amounts of urine
Number of approximated MODERATE 2 3
amounts of urine
Vital Signs
Temp Pulse Resp BP Pulse Ox
98.4 F 84 18 150/72 92
12/03/23 07:05 12/03/23 07:05 12/03/23 07:05 12/03/23 07:27 12/03/23 07:05
Calcium 7.8 mg/dl (8.4-10.2) L 12/02/23 08:21
Total Bilirubin 1.9 mg/dl (0.2-1.3) H 12/01/23 11:45
AST 26 U/L (14-36) 12/01/23 11:45
ALT 14 U/L (0-35) 12/01/23 11:45
Alkaline Phosphatase 94 U/L (38-126) 12/01/23 11:45
Total Protein 6.1 g/dl (6.3-8.2) L 12/01/23 11:45
Albumin 3.4 g/dl (3.5-5.0) L 12/01/23 11:45
Physical Exam
-
GENERAL/NEURO: Awake, Alert, no distress
CHEST: Unlabored breathing on RA
ABDOMEN: Soft, appropriately tender to palpation, distended. KEE with mostly serous drainage.
[2023-12-03] MEDS: CYMBALTA DELAYED RELEASE 20 MG PO (08:55)
[2023-12-03] MEDS: SYNTHROID 100 MCG PO (08:56)
[2023-12-03] MEDS: LIPITOR 20 MG PO (08:56)
[2023-12-03] MEDS: LOPRESSOR 100 MG PO ×3 (08:56→21:30)
[2023-12-03] MEDS: PROTONIX IV 40 MG IV (08:57)
[2023-12-03] MEDS: ZESTRIL 40 MG PO (08:57)
[2023-12-03] MEDS: NSS (PRESERVATIVE FREE) 10 ML IV (08:57)
[2023-12-03] MEDS: MIRALAX 17 GRAMS PO (09:01)
[2023-12-03 09:06] LABS: Blood Urea Nitrogen 8 mg/dl (7-17); Calcium 8.2 mg/dl (8.4-10.2); Carbon Dioxide 25 mmol/L (22-30); Chloride 103 mmol/L (98-107); Estimated Creatinine Clearance 55 ml/min; Glucose 87 mg/dl (70-99); Sodium 132 mmol/L (135-145); eGFR > 60.00
[2023-12-03 09:12] LABS: Potassium 3.4 mmol/L (3.5-5.1)
--- NOTE | 2023-12-03 10:09 | PTCARENOTE ---
Found patient out of chair, attempting to get to the bathroom; Call strange was not utilized by patient; Patient ambulated safely to bathroom with rolling walker; Patient educated cushion cover inspector strange use and to not get up without assistance; Patient
verbalized understanding of call strange use and to call for assistance with ambulation; Patient also requesting to review medications she received this morning, patient stated 'they are not giving me what they say they are', patient re-educated on
morning medications and dosing, patient verbalized understanding of prescribed medications; Instructed patient on incentive spirometer use as patient stated 'it was not brought in here before now', IS was in the room this morning upon initial AM
rounding; Assessment and patient education ongoing
[2023-12-03 14:40] VITALS: BP 160/76; PULSE 83; O2SAT 88
[2023-12-03 14:46] VITALS: BP 161/81
[2023-12-03 14:50] VITALS: BP 150/76; PULSE 83; O2SAT 88
--- NOTE | 2023-12-03 15:49 | PN.CDI ---
CDI
- -
CDI:
Physician Documentation Request
Admit Date: 12/01/23 18:00
Dear Doctor Adolfo,
Clinical Indicators:
Patient admitted with acute appendicitis; s/p laparoscopic appendectomy 11/30.
NSS 1 L IV bolus + maintenance fluids given.
Sodium levels:
12/01/23 12/02/23 12/03/23
11:45 08:21 06:29
Sodium 127 L 129 L 132 L
Based on the above, could you clarify in the progress notes, the appropriate diagnosis, if significant, that supports the above abnormalities and additional evaluation, monitoring and/or treatment rendered:
Hyponatremia
Abnormal lab value, clinically insignificant
Other, please specify
Use of terms such as suspected, likely, concern for, or probable (associated with a specific diagnosis that is being evaluated, monitored, or treated as if it exists) are acceptable and can be coded in the inpatient setting, when documented at the
time of discharge.
Thank you,
KEVIN Peck RN
CDI Specialist
available via tiger text
Please use your independent medical judgment in providing your response.
[2023-12-03] MEDS: ZOFRAN 4 MG IV (16:30)
[2023-12-03] MEDS: LOVENOX 40 MG SC (17:04)
[2023-12-03] MEDS: HYTRIN 1 MG PO (21:30)
[2023-12-03 23:13] VITALS: BP 155/71
[2023-12-04] MEDS: TYLENOL 650 MG PO ×6 (00:10→23:37)
[2023-12-04] MEDS: NSS 1000 IV (00:20)
[2023-12-04] MEDS: ZOSYN 50 IV ×4 (02:32→20:38)
[2023-12-04] MEDS: TYLENOL PO (04:55)
[2023-12-04 06:22] LABS: Hematocrit 31.9 % (37.0-47.0); Hemoglobin 10.6 g/dL (12.0-16.0); Mean Corp Hgb Conc. 33.2 g/dL (33.0-37.0); Mean Corpuscular Hgb 30.6 pg (27.0-31.0); Mean Corpuscular Volume 92.2 fL (81.0-99.0); Mean Platelet Volume 8.8 fL (7.4-10.4); Platelet Count 361 10^3/uL (130-400); Red Blood Cell Count 3.46 10^6/uL (4.20-5.40); Red Cell Dist. Width 13.8 % (11.5-14.5)
[2023-12-04 06:52] LABS: Blood Urea Nitrogen 7 mg/dl (7-17); Calcium 7.7 mg/dl (8.4-10.2); Carbon Dioxide 25 mmol/L (22-30); Chloride 103 mmol/L (98-107); Estimated Creatinine Clearance 55 ml/min; Glucose 84 mg/dl (70-99); Potassium 3.1 mmol/L (3.5-5.1); Sodium 133 mmol/L (135-145); eGFR > 60.00
[2023-12-04 07:03] VITALS: BP 167/80
--- NOTE | 2023-12-04 07:22 | W.PN.GS2 ---
Today's Communication / Plan
-
-- Regular diet
-- HLIV
-- Pain control: Tylenol Tramadol and low dose IV Dilaudid PRN
-- Restart home meds. Resume Lasix
-- Replete K, check Mg, recheck this afternoon with repletion and starting Lasix
Assessment / Plan
-
Patient is a 83 yo F POD#3 s/p laparoscopic appendectomy.
Afebrile, mild low-grade tachycardia, BP stable and hypertensive
Mild ileus, expected otherwise recovering as expected.
Hypokalemia, replete
Acute pulmonary insufficiency requiring supplemental oxygen likely related to atelectasis and edema
-- Regular diet
-- HLIV
-- Pain control: Tylenol Tramadol and low dose IV Dilaudid PRN
-- Abx: Zosyn
-- Restart home meds. Resume Lasix
-- Replete K, check Mg, recheck this afternoon with repletion and starting Lasix
-- Lovenox for DVT
-- Protonix for GI
-- PT/OT, OOB
Subjective Data
-
Date of Service: December 04, 2023
Reports feeling better. Less abdominal pain. No nausea or vomiting. Multiple loose, nonbloody bowel movements. Afebrile. Denies any shortness of breath though requiring supplemental oxygen, denies any worse pedal swelling.
Objective Data
-
Intake and Output
12/03/23 12/04/23 12/05/23
06:59 06:59 06:59
Intake Total 3820 / 3820 1120 / 1120
Output Total 415 / 415 580 / 580
Balance 3405 / 3405 540 / 540
Intake:
Oral fluids 1620 / 1620 120 / 120
IV fluids (Total) 2099 / 2099 900 / 900
IV piggybacks 100 / 100 100 / 100
Output:
Drain Output (Total) 115 / 115 80 / 80
Left Middle Abdomen Bacilio- 115 / 115 80 / 80
Levine A
Urine, Voided 300 / 300 500 / 500
Other:
Number of approximated SMALL 1 1
amounts of urine
Number of approximated MODERATE 3 2
amounts of urine
Vital Signs
Temp Pulse Resp BP Pulse Ox
97.9 F 99 14 155/71 95
12/03/23 23:13 12/03/23 23:13 12/03/23 23:13 12/03/23 23:13 12/03/23 23:13
Lab Results
12/04/23 04:46
Calcium 7.7 mg/dl (8.4-10.2) L 12/04/23 04:46
Total Bilirubin 1.9 mg/dl (0.2-1.3) H 12/01/23 11:45
AST 26 U/L (14-36) 12/01/23 11:45
ALT 14 U/L (0-35) 12/01/23 11:45
Alkaline Phosphatase 94 U/L (38-126) 12/01/23 11:45
Total Protein 6.1 g/dl (6.3-8.2) L 12/01/23 11:45
Albumin 3.4 g/dl (3.5-5.0) L 12/01/23 11:45
Physical Exam
-
Gen: NAD
Abd: soft, mild tenderness (improved), mild/moderate distension (stable), non-peritoneal, incisions c/d/i - no erythema or drainage, ecchymosis at umbilicus, KEE serous
Ext: +1 edema
[2023-12-04] MEDS: CYMBALTA DELAYED RELEASE 20 MG PO (08:44)
[2023-12-04] MEDS: LASIX 10 MG PO (08:44)
[2023-12-04] MEDS: ZESTRIL 40 MG PO (08:44)
[2023-12-04] MEDS: LOPRESSOR 100 MG PO ×3 (08:44→22:03)
[2023-12-04] MEDS: LIPITOR 20 MG PO (08:44)
[2023-12-04 08:45] LABS: Magnesium 1.9 mg/dl (1.6-2.3)
[2023-12-04] MEDS: KCL 20 MEQ PO ×2 (08:45→11:50)
[2023-12-04] MEDS: SYNTHROID 100 MCG PO (08:46)
[2023-12-04] MEDS: PROTONIX IV 40 MG IV (08:46)
[2023-12-04] MEDS: NSS (PRESERVATIVE FREE) 10 ML IV (08:46)
[2023-12-04] MEDS: FLUSH (NSS) 1 FLUSH IV (08:47)
[2023-12-04 15:36] LABS: Blood Urea Nitrogen 8 mg/dl (7-17); Calcium 8.2 mg/dl (8.4-10.2); Carbon Dioxide 27 mmol/L (22-30); Chloride 101 mmol/L (98-107); Estimated Creatinine Clearance 55 ml/min; Glucose 103 mg/dl (70-99); Potassium 3.6 mmol/L (3.5-5.1); Sodium 130 mmol/L (135-145); eGFR > 60.00
[2023-12-04 15:39] VITALS: BP 152/82
[2023-12-04] MEDS: LOVENOX 40 MG SC (17:44)
[2023-12-04] MEDS: HYTRIN 1 MG PO (22:02)
[2023-12-04 23:30] VITALS: BP 168/75
[2023-12-05] MEDS: ZOSYN 50 IV ×4 (01:30→20:27)
[2023-12-05 03:00] VITALS: BP 147/75
[2023-12-05] MEDS: TYLENOL 650 MG PO ×6 (04:02→23:01)
[2023-12-05 06:19] LABS: Hematocrit 32.4 % (37.0-47.0); Hemoglobin 10.8 g/dL (12.0-16.0); Mean Corp Hgb Conc. 33.3 g/dL (33.0-37.0); Mean Corpuscular Hgb 30.5 pg (27.0-31.0); Mean Corpuscular Volume 91.5 fL (81.0-99.0); Mean Platelet Volume 8.6 fL (7.4-10.4); Platelet Count 367 10^3/uL (130-400); Red Blood Cell Count 3.54 10^6/uL (4.20-5.40); Red Cell Dist. Width 13.7 % (11.5-14.5); White Blood Cell Count 8.3 10^3/uL (4.8-10.8)
[2023-12-05 06:51] LABS: Blood Urea Nitrogen 9 mg/dl (7-17); Calcium 8.1 mg/dl (8.4-10.2); Carbon Dioxide 24 mmol/L (22-30); Chloride 102 mmol/L (98-107); Estimated Creatinine Clearance 55 ml/min; Glucose 87 mg/dl (70-99); Potassium 3.2 mmol/L (3.5-5.1); Sodium 130 mmol/L (135-145); eGFR > 60.00
[2023-12-05 07:10] VITALS: BP 154/82
[2023-12-05] MEDS: NSS (PRESERVATIVE FREE) 10 ML IV (08:21)
[2023-12-05] MEDS: PROTONIX IV 40 MG IV (08:21)
[2023-12-05] MEDS: SYNTHROID 100 MCG PO (08:22)
[2023-12-05] MEDS: LIPITOR 20 MG PO (08:22)
[2023-12-05] MEDS: ZESTRIL 40 MG PO (08:22)
[2023-12-05] MEDS: LOPRESSOR 100 MG PO ×3 (08:22→21:47)
[2023-12-05] MEDS: CYMBALTA DELAYED RELEASE 20 MG PO (08:22)
[2023-12-05] MEDS: LASIX 10 MG PO (08:22)
--- NOTE | 2023-12-05 08:53 | W.PN.GS2 ---
Today's Communication / Plan
-
Will begin dispo planning, anticipate discharge in the next day or so without the drain.
Assessment / Plan
-
Patient is a 83 yo F POD#4 s/p laparoscopic appendectomy. Doing well, expected ileus now resolving.
-- Hyponatremia and hypokalemia noted. Hep-Lock IV fluids, p.o. K replacement
-- Regular diet
-- Pain control: Tylenol Tramadol and low dose IV Dilaudid PRN
-- Abx: Zosyn /
-- Restart home meds. Resume Lasix
-- Lovenox for DVT
-- Protonix for GI
-- PT/OT, OOB
Time Spent
Total Time Spent with Patient (in minutes): 20
Subjective Data
-
Date of Service: December 05, 2023
Interval Events:
No acute events overnight. Did not sleep well. Pain Controlled. Denies Nausea/Vomiting, +bowel function, loose stools. Tolerating diet.
Objective Data
-
Intake and Output
12/04/23 12/05/23 12/06/23
06:59 06:59 06:59
Intake Total 1120 / 1120 2480 / 2480
Output Total 580 / 580 80 / 80
Balance 540 / 540 2400 / 2400
Intake:
Oral fluids 120 / 120 1380 / 1380
IV fluids (Total) 900 / 900 900 / 900
IV piggybacks 100 / 100 200 / 200
Output:
Drain Output (Total) 80 / 80 80 / 80
Left Middle Abdomen Bacilio- 80 / 80 80 / 80
Levine A
Urine, Voided 500 / 500
Other:
Number of approximated SMALL 1
amounts of urine
Number of approximated MODERATE 2 3
amounts of urine
Vital Signs
Temp Pulse Resp BP Pulse Ox
98.4 F 82 16 154/82 90
12/05/23 07:10 12/05/23 08:22 12/05/23 07:10 12/05/23 08:22 12/05/23 07:10
Lab Results
12/05/23 05:29
12/05/23 05:29
Calcium 8.1 mg/dl (8.4-10.2) L 12/05/23 05:29
Magnesium Cancelled 12/04/23 07:03
Total Bilirubin 1.9 mg/dl (0.2-1.3) H 12/01/23 11:45
AST 26 U/L (14-36) 12/01/23 11:45
ALT 14 U/L (0-35) 12/01/23 11:45
Alkaline Phosphatase 94 U/L (38-126) 12/01/23 11:45
Total Protein 6.1 g/dl (6.3-8.2) L 12/01/23 11:45
Albumin 3.4 g/dl (3.5-5.0) L 12/01/23 11:45
Physical Exam
-
GENERAL/NEURO: Awake, Alert, no distress
CHEST: Unlabored breathing on RA
ABDOMEN: Soft, tender to palpation somewhat diffusely, mildly distended. Incisions clean dry and intact some stable rosa-incisional bruising noted especially around the umbilicus.
[2023-12-05] MEDS: KLOR-CON 20 MEQ PO ×3 (12:50→21:47)
[2023-12-05 14:20] VITALS: BP 147/72; PULSE 75; O2SAT 94
[2023-12-05] MEDS: FIBERCON 625 MG PO (15:40)
--- NOTE | 2023-12-05 15:58 | CM ---
Discharge plan of care: Therapy recommendation for PT. Lives in [place]. Referral to [facility] forwarded for PT/OT and VN.
[2023-12-05] MEDS: LOVENOX 40 MG SC (17:37)
[2023-12-05] MEDS: HYTRIN 1 MG PO (21:51)
[2023-12-05 22:56] VITALS: BP 149/70
[2023-12-06] MEDS: ZOSYN 50 IV ×2 (02:09→07:43)
[2023-12-06] MEDS: TYLENOL 650 MG PO ×5 (03:56→19:51)
[2023-12-06 07:36] VITALS: BP 134/83
[2023-12-06] MEDS: NSS (PRESERVATIVE FREE) 10 ML IV (07:43)
[2023-12-06] MEDS: LIPITOR 20 MG PO (07:43)
[2023-12-06] MEDS: FIBERCON 625 MG PO (07:43)
[2023-12-06] MEDS: PROTONIX IV 40 MG IV (07:43)
[2023-12-06] MEDS: SYNTHROID 100 MCG PO (07:43)
[2023-12-06] MEDS: LOPRESSOR 100 MG PO ×3 (07:43→21:23)
[2023-12-06] MEDS: ZESTRIL 40 MG PO (07:44)
[2023-12-06] MEDS: LASIX 10 MG PO (07:44)
[2023-12-06] MEDS: CYMBALTA DELAYED RELEASE 20 MG PO (07:44)
--- NOTE | 2023-12-06 08:36 | W.PN.GS2 ---
Addendum entered and electronically signed by João Baker MD 12/06/23 08:45:
pt seen and examined with TABLE TOP TILE SETTER
still feels fatigued/deconditioned
bert PO but not much appetite
+flatus
c/o frequent urination
AFVSS
AM labs pending
ABD: softly distended, TTP at incision sites and RLQ
KEE with mostly SSF - stripped
A/P: POD#5 s/p lap appy
overall doing well, improving
adjusting PO meds
PT/OT
observe today on PO abx
possible d/c in 24hrs if improving ambulation/pain control and dietary intake
Original Note:
Today's Communication / Plan
-
Increase activity
Pain control
Assessment / Plan
-
Patient is a 83 yo F POD#5 s/p laparoscopic appendectomy
AFVSS
Ileus resolving, tolerating diet with passage of stools
Electrolytes pending
-- Continue home meds. Held terazosin at patient's request
-- Regular diet
-- Pain control: Tylenol, Tramadol and low dose IV Dilaudid PRN
-- Abx: transition to Augmentin today
-- Lovenox for DVT ppx
-- Protonix for GI ppx
-- PT/OT, OOB
-- Continue KEE drain
Tentative d/c tomorrow if continues to progress
Subjective Data
-
Date of Service: December 06, 2023
Patient seen and examined at bedside with Dr. Baker. Notes she has been passing loose bm's. Frequent voiding overnight, requesting Hytrin be held. Cramping pain the right lower quadrant, no worse than previous. Tolerating diet without nausea.
Objective Data
-
Intake and Output
12/05/23 12/06/23 12/07/23
06:59 06:59 06:59
Intake Total 2480 / 2480 1200 / 1200
Output Total 80 / 80 110 / 110
Balance 2400 / 2400 1090 / 1090
Intake:
Oral fluids 1380 / 1380 1200 / 1200
IV fluids (Total) 900 / 900
IV piggybacks 200 / 200
Output:
Drain Output (Total) 80 80 110 / 110
Left Middle Abdomen Bacilio- 80 110 / 110
Levine A
Other:
Number of approximated SMALL 1
amounts of urine
Number of approximated MODERATE 3 1
amounts of urine
Number of approximated LARGE 1
amounts of urine
Vital Signs
Temp Pulse Resp BP Pulse Ox
98.5 F 83 16 134/84 92
12/06/23 07:36 12/06/23 07:44 12/06/23 07:36 12/06/23 07:44 12/06/23 07:36
Lab Results
12/05/23 05:29
Calcium 8.1 mg/dl (8.4-10.2) L 12/05/23 05:29
Magnesium Cancelled 12/04/23 07:03
Total Bilirubin 1.9 mg/dl (0.2-1.3) H 12/01/23 11:45
AST 26 U/L (14-36) 12/01/23 11:45
ALT 14 U/L (0-35) 12/01/23 11:45
Alkaline Phosphatase 94 U/L (38-126) 12/01/23 11:45
Total Protein 6.1 g/dl (6.3-8.2) L 12/01/23 11:45
Albumin 3.4 g/dl (3.5-5.0) L 12/01/23 11:45
Physical Exam
-
GENERAL/NEURO: Awake, Alert, no distress
CHEST: Unlabored breathing on RA
ABDOMEN: Soft, tender to palpation to the right abd, mildly distended. Incisions clean dry and intact some stable rosa-incisional bruising noted especially around the umbilicus.
[2023-12-06 08:51] LABS: Blood Urea Nitrogen 5 mg/dl (7-17); Calcium 8.2 mg/dl (8.4-10.2); Carbon Dioxide 29 mmol/L (22-30); Chloride 100 mmol/L (98-107); Estimated Creatinine Clearance 55 ml/min; Glucose 95 mg/dl (70-99); Magnesium 1.6 mg/dl (1.6-2.3); Potassium 3.6 mmol/L (3.5-5.1); Sodium 130 mmol/L (135-145); eGFR > 60.00
[2023-12-06] MEDS: MAGNESIUM SULFATE 50 IV (09:38)
[2023-12-06 15:08] VITALS: BP 164/82
--- NOTE | 2023-12-06 15:17 | CM ---
POD #5. PO/AB, watch pain control and increase dietary intake. Discharge Plan of Care: Home with [facility] for VN, PT/OT services.
[2023-12-06] MEDS: LOVENOX 40 MG SC (17:00)
[2023-12-06] MEDS: AUGMENTIN 875 MG/125 MG 1 TABLET PO (19:51)
[2023-12-06 23:05] VITALS: BP 171/85
[2023-12-07] MEDS: TYLENOL 650 MG PO ×3 (00:48→12:34)
[2023-12-07] MEDS: TYLENOL PO (05:42)
[2023-12-07 07:50] VITALS: BP 161/90
[2023-12-07] MEDS: LIPITOR 20 MG PO (08:11)
[2023-12-07] MEDS: ZESTRIL 40 MG PO (08:11)
[2023-12-07] MEDS: AUGMENTIN 875 MG/125 MG 1 TABLET PO (08:11)
[2023-12-07] MEDS: LOPRESSOR 100 MG PO (08:12)
[2023-12-07] MEDS: LASIX PO (08:12)
[2023-12-07] MEDS: FIBERCON 625 MG PO (08:12)
[2023-12-07] MEDS: SYNTHROID 100 MCG PO (08:12)
[2023-12-07] MEDS: PROTONIX IV 40 MG IV (08:12)
[2023-12-07] MEDS: CYMBALTA DELAYED RELEASE 20 MG PO (08:12)
[2023-12-07] MEDS: FLUSH (NSS) 2 FLUSH IV (08:13)
[2023-12-07] MEDS: NSS (PRESERVATIVE FREE) 10 ML IV (08:13)
--- NOTE | 2023-12-07 12:08 | W.PN.GS2 ---
Addendum entered and electronically signed by Cody Farrar MD 12/07/23 12:33:
I saw and examined the patient.
The Uke Driver's note was reviewed and I agree with the note.
Comment: Improving, feels well, would like to go home. Pain controlled. Ambulating, voiding, passing flatus, bert diet. Exam benign, incisions cdi, drain serous, some expected ecchymosis particularly around the umbilicus. OK for DC, will remove
drain prior
Original Note:
Today's Communication / Plan
-
dispo planning
Assessment / Plan
-
Patient is a 83 yo F POD#6 s/p laparoscopic appendectomy
AFVSS
Tolerating diet with passage of stools
-- Continue home meds
-- Regular diet
-- Pain control: Tylenol, Tramadol and low dose IV Dilaudid PRN
-- Abx: continue augmentin
-- Lovenox for DVT ppx
-- Protonix for GI ppx
-- PT/OT, OOB
-- Will remove KEE drain prior to d/c
Discharge later today
Subjective Data
-
Date of Service: December 07, 2023
Patient seen and examined at bedside with Dr. Farrar. Denies n/v. Tolerating diet but does have a poor appetite. Passing flatus. Diarrhea has improved. Does note nocturia overnight.
Objective Data
-
Intake and Output
12/06/23 12/07/23 12/08/23
06:59 06:59 06:59
Intake Total 1200 / 1200 1610 / 1610
Output Total 110 / 110 95 / 95
Balance 1090 / 1090 1515 / 1515
Intake:
Oral fluids 1200 / 1200 1560 / 1560
IV piggybacks 50 / 50
Output:
Drain Output (Total) 110 / 110 95 / 95
Left Middle Abdomen Bacilio- 110 / 110 /
Levine A
Other:
Number of approximated SMALL 1 4
amounts of urine
Number of approximated MODERATE 1 3
amounts of urine
Number of approximated LARGE 1
amounts of urine
Vital Signs
Temp Pulse Resp BP Pulse Ox
98 F 76 17 161/90 93
12/07/23 07:50 12/07/23 07:50 12/07/23 07:50 12/07/23 07:50 12/07/23 08:08
Lab Results
12/05/23 05:29
12/06/23 07:40
Calcium 8.2 mg/dl (8.4-10.2) L 12/06/23 07:40
Magnesium 1.6 mg/dl (1.6-2.3) 12/06/23 07:40
Total Bilirubin 1.9 mg/dl (0.2-1.3) H 12/01/23 11:45
AST 26 U/L (14-36) 12/01/23 11:45
ALT 14 U/L (0-35) 12/01/23 11:45
Alkaline Phosphatase 94 U/L (38-126) 12/01/23 11:45
Total Protein 6.1 g/dl (6.3-8.2) L 12/01/23 11:45
Albumin 3.4 g/dl (3.5-5.0) L 12/01/23 11:45
Physical Exam
-
GENERAL/NEURO: Awake, Alert, no distress
CHEST: Unlabored breathing on RA
ABDOMEN: Soft, mildly to palpation to the right abd (improved), ND. Incisions clean dry and intact some stable rosa-incisional bruising noted especially around the umbilicus. KEE with SSF outputs
--- NOTE | 2023-12-07 13:18 | W.DCSUMMARY ---
Discharge Summary
Discharge Data
Date of Admission: 12/01/23
Date of Discharge: 12/07/23
-
Pending Results: No
Hospital Course
83 yo female who presented with acute appendicitis and was taken to the OR for laparoscopic appendectomy with severely inflamed and gangrenous appendix noted intraoperatively. A KEE drain was left in place post operatively and removed prior to
discharge. Antibiotics were continued as an inpatient with transition to oral agent prior to discharge. Ileus was present initially but did resolve with passage of flatus and multiple stools. Diet was advanced and well tolerated prior to discharge.
She was evaluated by PT/OT during her stay and cleared to return home with home health support which was arranged by case management. She was discharged to home with her spouse with outpatient follow up planned in the coming weeks.
Discharge Plan
-
Patient Disposition: Home (Routine Discharge)
Discharge Diagnosis/Procedures: Acute appendicitis status post laparoscopic appendectomy
Condition: Good
Diet: Regular
Activity: No strenuous activity
Additional Activity: Do not lift more than 20 lbs for the next 2-3 weeks
[address]riving Restrictions: Wait until off narcotics/comfortable twisting
Bathing Restrictions: OK to Shower
Wound Care: Ok to wash your incisions with soap and water. Avoid scrubbing or picking off the glue. Cover the incision where your drain was with a dry gauze dressing and change every day and as needed until no more drainage is present. The area will
scab over in the next few days.
Activity Restrictions/Additional Instructions:
Call your surgeon if you develop nausea or vomiting, worsening abdominal pain or a fever above 100.5.
If you are unable to have a bowel movement for 2 days, take over the counter Miralax daily as needed.
Referrals:
Kahlil Padilla MD [Active] - in two to four weeks
Tim Ford MD [Family Provider] -
Prescriptions:
New
acetaminophen [acetaminophen] 325 mg tablet
650 mg PO Q4HPRN PRN (Reason: mild pain) Qty: 1 0RF
amoxicillin-pot clavulanate 875-125 mg tablet
1 tab PO Q12 Qty: 12 0RF
Continued
atorvastatin 20 mg Tablet
20 mg PO DAILY
metoprolol tartrate 100 mg Tablet
100 mg PO TID
alendronate 70 mg Tablet
70 mg PO SAWANT@0800
aspirin 81 mg Tablet,Delayed Release (Dr/Ec)
81 mg PO DAILY
levothyroxine 100 mcg Tablet
100 mcg PO DAILY
timolol maleate 0.5 % Gel Forming Solution
1 drp RIGHT EYE DAILY
lisinopril 40 mg Tablet
40 mg PO DAILY
ueujyznjcjzr-ezmuketx-kftkbd Tablet
1 tab PO NOON
furosemide [Lasix] 20 mg tablet
10 mg PO DAILY Qty: 30 0RF
terazosin 1 mg Capsule
1 mg PO HS
duloxetine [Cymbalta] 20 mg Capsule,Delayed Release(Dr/Ec)
20 mg PO DAILY
Calcium 600
600 mg PO DAILY
Discharge Orders:
Discharge Patient (As Directed); Ordered 12/07/23
Ordered By: Aline Koch
Discharge Date and Time
Print Language: NEPALI
--- NOTE | 2023-12-07 14:02 | CM ---
Patient has been medically cleared for discharge to home with [facility] VN and PT/OT services. will transport home. [facility] notified of discharge.
[facility] FAX # [phone]
[2023-12-07 14:51] VITALS: BP 153/83
== END 2023-12-07 15:39 | disposition home health service (06) | DRG 397 ==
LOC: 2 SOUTH 18:00
PROVIDERS: Registered Nurse; ADMITTING PHYSICIAN Surgery; EMERGENCY PHYSICIAN Emergency Medicine; FAMILY PHYSICIAN Family Medicine
PROC: 0DTJ4ZZ Resection of Appendix, Percutaneous Endoscopic Approach (ICD-10-PCS; 2023-12-01)
DX: K35.891 Other acute appendicitis without perforation, with gangrene (principal); J95.2 Acute pulmonary insufficiency following nonthoracic surgery; E87.1 Hypo-osmolality and hyponatremia; K56.7 Ileus, unspecified; J98.11 Atelectasis; I69.354 Hemiplegia and hemiparesis following cerebral infarction affecting left non-dominant side; E03.9 Hypothyroidism, unspecified; I10 Essential (primary) hypertension; E78.00 Pure hypercholesterolemia, unspecified; E87.6 Hypokalemia; R35.0 Frequency of micturition; Y83.8 Other surgical procedures as the cause of abnormal reaction of the patient, or of later complication, without mention of misadventure at the time of the procedure; Y92.239 Unspecified place in hospital as the place of occurrence of the external cause; Z79.82 Long term (current) use of aspirin; Z79.890 Hormone replacement therapy; Z88.6 Allergy status to analgesic agent; Z88.1 Allergy status to other antibiotic agents; Z88.2 Allergy status to sulfonamides; Z88.8 Allergy status to other drugs, medicaments and biological substances
CPT/HCPCS: 88304; 74177; 80048; 80053; 83690; 83735; 85025; 85027; 87070; 96361; 96374; 96375; 97116; 97162; 97166; 97530; 97535; 99285; Q9967